=== PATIENT | female | born 1955 | race Two or more races ===

== ENCOUNTER 2020-02-24 20:51 | Inpatient (IN) | payer MEDICARE, MEDICAID ==
[~2020-02-24] VITALS: Ht 167.6 cm; Wt 112.2 kg
[2020-02-24 21:34] LABS: ABG A-A DIFF O2 515.8 mmHg (10-20.0); ABG BASE EXCESS -4.4 mmol/L (-2.0-3.0); ABG CARBOXYHEMOGLOBIN 0.8 % (0.0-1.5); ABG HCO3 20.4 mmol/L (22.0-26.0); ABG METHEMOGLOBIN 0.2 % (0.0-1.5); ABG OXYGEN CONTENT 17.4 mL/dL (15.0-23.0); ABG PCO2 59 mmHg (35-45); ABG PH 7.219 (7.35-7.450); ABG TOTAL HEMOGLOBIN 12.6 G/dL (12.0-18.0); PO2, ARTERIAL BG 137.3 mmHg (79.0-87.0); SOURCE, BLOOD GAS ARTERIAL; TEMPERATURE, FAHRENHEIT, BG 99.5 FAHREN (96.0-98.6)
[2020-02-24 21:35] LABS: O2 DEVICE,BLOOD GAS VENTILATOR (ROOM AIR); PEEP,BG 15 cm H2O; SITE, BLOOD GAS RT RADIAL; VT, ABG 500 ml
[2020-02-24] MEDS: PROPOFOL 1000 MG/ISO-OSM 100 ML IV PRN (21:56)
[2020-02-24] MEDS ORDERED: ONDANSETRON HCL 4 MG/2 ML VIAL IVP PRN ×2 (22:00→23:00)
[2020-02-24] MEDS ORDERED: ACETAMINOPHEN 325 MG TABLET PO PRN (22:00)
[2020-02-24] MEDS: NOREPINEPHRINE 4 MG/D5%-WATER 250 ML IV PRN (22:00)
[2020-02-24] MEDS ORDERED: 0.9% SODIUM CHLORIDE 10 ML SYRINGE IVP PRN ×2 (22:00→23:00)
[2020-02-24] MEDS: FentaNYL CITRATE PF 500 MCG in DEXTROSE 5%-WATER 90 ML IV PRN (22:15)
[2020-02-24] MEDS ORDERED: SODIUM CHLORIDE 0.9% 500 ML IV ONE (22:37)
[2020-02-24 22:52] LABS: ALANINE AMINOTRANSFERASE 25 U/L (12-78); ALBUMIN 2.3 g/dL (3.4-5.0); ALKALINE PHOSPHATASE 106 U/L (46-116); ANION GAP 8 mmol/L (8-16); ASPARTATE AMINOTRANSFERASE 70 U/L (15-37); BILIRUBIN,TOTAL 1.1 mg/dL (0.1-1.0); C-REACTIVE PROTEIN QUANT 7.36 mg/dL (0.00-0.30); CALCIUM, TOTAL 8.3 mg/dL (8.8-10.5); CARBON DIOXIDE 24 mmol/L (22-29); CHLORIDE 110 mmol/L (98-107); CREATININE 0.87 mg/dL (0.60-1.30); FERRITIN 202 ng/mL (8-252); GLOMERULAR FILTR. RATE CALC > 60 mL/min (>60); GLUCOSE,RANDOM 230 mg/dL (70-110); LACTATE DEHYDROGENASE 755 U/L (81-234); POTASSIUM 4.5 mmol/L (3.5-5.1); SODIUM SERUM 142 mmol/L (136-145); TOTAL PROTEIN, SERUM 6.9 g/dL (6.4-8.2); UREA NITROGEN, BLOOD 22 mg/dL (7-18)
[2020-02-24] MEDS ORDERED: CefTRIAXone 1 GM/DEXTROSE 50 ML IV SCH (23:00)
[2020-02-24] MEDS ORDERED: DEXMEDETOMIDINE HCL 200 MCG in SODIUM CHLORIDE 0.9% 48 ML IV PRN (23:00)
[2020-02-24 23:02] LABS: HEMATOCRIT 37.7 % (36-46); HEMOGLOBIN 11.7 g/dL (12.0-16.0); MEAN CORPUSCULAR VOLUME 90 fL (80-100); PLATELET COUNT (AUTO) 203 K/uL (150-450); RED BLOOD CELL COUNT(AUTO) 4.18 MIL/uL (4.00-5.20); RED CELL DISTRIBUTION WIDTH 17.6 % (11.5-14.5)
[2020-02-24 23:14] LABS: D-DIMER 9.02 mg/L FEU (0.00-0.50)
[2020-02-24 23:32] LABS: BAND NEUTROPHILS % (MANUAL) 3 % (0-5); LYMPHOCYTES % (MANUAL) 3 % (22-44); MONOCYTES % (MANUAL) 2 % (2-9); SEGMENTED NEUTROPHILS % 92 % (40-70)
[2020-02-24 23:50] LABS: ABG A-A DIFF O2 512.4 mmHg (10-20.0); ABG BASE EXCESS -6.4 mmol/L (-2.0-3.0); ABG CARBOXYHEMOGLOBIN 0.5 % (0.0-1.5); ABG HCO3 19.8 mmol/L (22.0-26.0); ABG METHEMOGLOBIN 0.2 % (0.0-1.5); ABG OXYGEN CONTENT 17.5 mL/dL (15.0-23.0); ABG OXYGEN SATURATION 98.6 % (95.0-98.0); ABG OXYHEMOGLOBIN 97.9 % (94.0-100.0); ABG PCO2 37 mmHg (35-45); ABG PH 7.336 (7.35-7.450); ABG TOTAL HEMOGLOBIN 12.5 G/dL (12.0-18.0); PO2, ARTERIAL BG 162.2 mmHg (79.0-87.0); SOURCE, BLOOD GAS ARTERIAL; TEMPERATURE, FAHRENHEIT, BG 99.5 FAHREN (96.0-98.6)
[2020-02-24 23:52] LABS: O2 DEVICE,BLOOD GAS VENTILATOR (ROOM AIR); PEEP,BG 15 cm H2O; SITE, BLOOD GAS ARTERIAL LINE; VT, ABG 500 ml
[2020-02-25] MEDS ORDERED: HEPARIN SODIUM,PORCINE 5,000 UNITS/ML VIAL SQ SCH
[2020-02-25] MEDS ORDERED: AZITHROMYCIN 500 MG/NS 250 ML IV SCH
[2020-02-25] MEDS ORDERED: DEXMEDETOMIDINE HCL 200 MCG in SODIUM CHLORIDE 0.9% 48 ML IV PRN (00:15)
[2020-02-25] MEDS: SODIUM CHLORIDE 0.9% 2,950 ML IV SCH ×2 (00:16→13:24)
[2020-02-25] MEDS ORDERED: DEXTROSE 50%-WATER 25 GM/50 ML SYRINGE IVP PRN (00:30)
[2020-02-25] MEDS ORDERED: HEPARIN SODIUM,PORCINE 5,000 UNITS/ML VIAL IVP PRN ×2 (00:30)
[2020-02-25 00:57] LABS: INR 1.2 (0.9-1.1)
[2020-02-25] MEDS: NOREPINEPHRINE 4 MG/D5%-WATER 250 ML IV PRN ×4 (02:02→16:01)
[2020-02-25] MEDS: HEPARIN SODIUM 25000 UNITS/D5W 250 ML IV PRN (02:49)
[2020-02-25] MEDS: PROPOFOL 1000 MG/ISO-OSM 100 ML IV PRN ×4 (04:23→21:24)
[2020-02-25] MEDS: INSULIN LISPRO 100 UNITS/ML SQ PRN ×4 (04:48→17:33)
[2020-02-25] MEDS: FentaNYL CITRATE PF 500 MCG in DEXTROSE 5%-WATER 90 ML IV PRN ×4 (05:05→21:25)
[2020-02-25 05:48] LABS: GLUCOSE,POINT OF CARE 243 MG/DL (70-110)
[2020-02-25 08:05] LABS: HEMATOCRIT 37.7 % (36-46); HEMOGLOBIN 12.2 g/dL (12.0-16.0); MEAN CORPUSCULAR HGB CONC 32.3 G/dL (31.0-37.0); MEAN CORPUSCULAR VOLUME 90 fL (80-100); PLATELET COUNT (AUTO) 181 K/uL (150-450); RED CELL DISTRIBUTION WIDTH 17.6 % (11.5-14.5)
[2020-02-25 08:26] LABS: D-DIMER 10.65 mg/L FEU (0.00-0.50)
[2020-02-25 08:28] LABS: LACTIC ACID 3.8 mmol/L (0.4-2.0)
[2020-02-25 08:34] LABS: ALANINE AMINOTRANSFERASE 25 U/L (12-78); ALBUMIN 2.2 g/dL (3.4-5.0); ALKALINE PHOSPHATASE 105 U/L (46-116); ANION GAP 9 mmol/L (8-16); ASPARTATE AMINOTRANSFERASE 67 U/L (15-37); BILIRUBIN,TOTAL 1.4 mg/dL (0.1-1.0); C-REACTIVE PROTEIN QUANT 10.45 mg/dL (0.00-0.30); CALCIUM, TOTAL 8.3 mg/dL (8.8-10.5); CARBON DIOXIDE 22 mmol/L (22-29); CHLORIDE 110 mmol/L (98-107); FERRITIN 203 ng/mL (8-252); GLOMERULAR FILTR. RATE CALC > 60 mL/min (>60); GLUCOSE,RANDOM 234 mg/dL (70-110); POTASSIUM 4.3 mmol/L (3.5-5.1); SODIUM SERUM 141 mmol/L (136-145); TOTAL PROTEIN, SERUM 6.8 g/dL (6.4-8.2); UREA NITROGEN, BLOOD 19 mg/dL (7-18)
[2020-02-25 09:07] LABS: BAND NEUTROPHILS % (MANUAL) 3 % (0-5); LYMPHOCYTES % (MANUAL) 8 % (22-44); SEGMENTED NEUTROPHILS % 89 % (40-70)
[2020-02-25 09:20] VITALS: BP 106/59
[2020-02-25 09:46] LABS: GLUCOSE,POINT OF CARE 208 MG/DL (70-110)
[2020-02-25] MEDS: DEXAMETHASONE SOD PHOS 10 MG/ML VIAL IVP SCH (09:46)
[2020-02-25] MEDS: FAMOTIDINE 10 MG/ML 2 ML VIAL IVP SCH ×2 (09:46→23:00)
[2020-02-25 12:00] VITALS: BP 106/87
[2020-02-25 13:10] LABS: GLUCOSE,POINT OF CARE 229 MG/DL (70-110)
[2020-02-25] MEDS ORDERED: CISATRACURIUM BESYLATE 2 MG/ML 10 ML VIAL IVP ONE ×2 (13:15→13:30)
[2020-02-25] MEDS: REMDESIVIR **INVESTIGATIONAL** 100 MG in SODIUM CHLORIDE 0.9% 230 ML IV SCH (13:57)
[2020-02-25] MEDS: CISATRACURIUM BESYLATE 50 MG in DEXTROSE 5%-WATER 245 ML IV PRN ×3 (13:58→21:00)
[2020-02-25 16:00] VITALS: BP 133/44
[2020-02-25 17:52] LABS: ABG A-A DIFF O2 263.7 mmHg (10-20.0); ABG BASE EXCESS -6.2 mmol/L (-2.0-3.0); ABG CARBOXYHEMOGLOBIN 0.3 % (0.0-1.5); ABG HCO3 19.3 mmol/L (22.0-26.0); ABG METHEMOGLOBIN 0.3 % (0.0-1.5); ABG OXYGEN CONTENT 17.2 mL/dL (15.0-23.0); ABG OXYGEN SATURATION 99.4 % (95.0-98.0); ABG OXYHEMOGLOBIN 98.8 % (94.0-100.0); ABG PCO2 54 mmHg (35-45); ABG TOTAL HEMOGLOBIN 11.8 G/dL (12.0-18.0); PO2, ARTERIAL BG 322.5 mmHg (79.0-87.0); SITE, BLOOD GAS RT RADIAL; SOURCE, BLOOD GAS ARTERIAL; TEMPERATURE, FAHRENHEIT, BG 98.8 FAHREN (96.0-98.6); VT, ABG 500 ml
[2020-02-25 17:53] LABS: PEEP,BG 10 cm H2O; SPONTANEOUS VT, BG 490 ml
[2020-02-25 19:07] LABS: GLUCOSE,POINT OF CARE 253 MG/DL (70-110)
[2020-02-25 20:00] VITALS: BP 115/50
[2020-02-25] MEDS: INSULIN GLARGINE,HUM.REC.ANLOG 100 UNITS/ML SQ SCH (21:02)
[2020-02-26] VITALS (10 sets, daily range): BP systolic 120–139; BP diastolic 48–61
[2020-02-26] MEDS: NOREPINEPHRINE 4 MG/D5%-WATER 250 ML IV PRN ×3 (00:06→18:24)
[2020-02-26] MEDS: FentaNYL CITRATE PF 500 MCG in DEXTROSE 5%-WATER 90 ML IV PRN ×3 (00:32→18:22)
[2020-02-26] MEDS ORDERED: SODIUM CHLORIDE 0.9% 250 ML IV ONE ×2 (02:55→17:03)
[2020-02-26 06:20] LABS: HEMATOCRIT 33.5 % (36-46); HEMOGLOBIN 10.9 g/dL (12.0-16.0); MEAN CORPUSCULAR HEMOGLOBIN 30.2 pg (26.0-34.0); MEAN CORPUSCULAR HGB CONC 32.6 G/dL (31.0-37.0); MEAN CORPUSCULAR VOLUME 93 fL (80-100); PLATELET COUNT (AUTO) 158 K/uL (150-450); RED BLOOD CELL COUNT(AUTO) 3.61 MIL/uL (4.00-5.20); RED CELL DISTRIBUTION WIDTH 17.2 % (11.5-14.5)
[2020-02-26] MEDS: HEPARIN SODIUM 25000 UNITS/D5W 250 ML IV PRN (06:34)
[2020-02-26] MEDS: PROPOFOL 1000 MG/ISO-OSM 100 ML IV PRN ×4 (06:35→21:13)
[2020-02-26] MEDS: CISATRACURIUM BESYLATE 50 MG in DEXTROSE 5%-WATER 245 ML IV PRN ×3 (06:36→22:45)
[2020-02-26] MEDS: INSULIN LISPRO 100 UNITS/ML SQ PRN ×4 (06:37→23:29)
[2020-02-26 06:42] LABS: ALANINE AMINOTRANSFERASE 35 U/L (12-78); ALBUMIN 1.9 g/dL (3.4-5.0); ALKALINE PHOSPHATASE 101 U/L (46-116); ANION GAP 6 mmol/L (8-16); ASPARTATE AMINOTRANSFERASE 105 U/L (15-37); BILIRUBIN,TOTAL 1.2 mg/dL (0.1-1.0); C-REACTIVE PROTEIN QUANT 15.24 mg/dL (0.00-0.30); CALCIUM, TOTAL 8.2 mg/dL (8.8-10.5); CARBON DIOXIDE 24 mmol/L (22-29); CHLORIDE 107 mmol/L (98-107); CREATININE 0.77 mg/dL (0.60-1.30); FERRITIN 196 ng/mL (8-252); GLOMERULAR FILTR. RATE CALC > 60 mL/min (>60); GLUCOSE,RANDOM 276 mg/dL (70-110); POTASSIUM 4.7 mmol/L (3.5-5.1); SODIUM SERUM 137 mmol/L (136-145); TOTAL PROTEIN, SERUM 6.4 g/dL (6.4-8.2); UREA NITROGEN, BLOOD 18 mg/dL (7-18)
[2020-02-26 06:59] LABS: GLUCOSE,POINT OF CARE 284 MG/DL (70-110)
[2020-02-26 06:59] LABS: GLUCOSE,POINT OF CARE 284 MG/DL (70-110)
[2020-02-26] MEDS: FAMOTIDINE 10 MG/ML 2 ML VIAL IVP SCH ×2 (08:48→21:09)
[2020-02-26] MEDS: DEXAMETHASONE SOD PHOS 10 MG/ML VIAL IVP SCH (08:49)
[2020-02-26] MEDS ORDERED: SODIUM CHLORIDE 0.9% 500 ML IV ONE (10:59)
[2020-02-26 12:06] LABS: BAND NEUTROPHILS % (MANUAL) 12 % (0-5); LYMPHOCYTES % (MANUAL) 2 % (22-44); MONOCYTES % (MANUAL) 2 % (2-9); MYELOCYTES % 1 % (0-0); SEGMENTED NEUTROPHILS % 83 % (40-70)
[2020-02-26 14:19] LABS: GLUCOSE,POINT OF CARE 257 MG/DL (70-110)
[2020-02-26] MEDS: REMDESIVIR **INVESTIGATIONAL** 100 MG in SODIUM CHLORIDE 0.9% 230 ML IV SCH (14:48)
[2020-02-26] MEDS: INSULIN GLARGINE,HUM.REC.ANLOG 100 UNITS/ML SQ SCH (21:11)
[2020-02-26 21:33] LABS: GLUCOMETER DEV NAME(LOC) 4E.2; GLUCOSE,POINT OF CARE 259 MG/DL (70-110)
[2020-02-27] VITALS (12 sets, daily range): BP systolic 117–138; BP diastolic 46–62
[2020-02-27] MEDS: PROPOFOL 1000 MG/ISO-OSM 100 ML IV PRN ×6 (02:52→21:16)
[2020-02-27] MEDS: HEPARIN SODIUM 25000 UNITS/D5W 250 ML IV PRN (02:53)
[2020-02-27] MEDS: FentaNYL CITRATE PF 500 MCG in DEXTROSE 5%-WATER 90 ML IV PRN ×4 (02:57→23:44)
[2020-02-27] MEDS: CISATRACURIUM BESYLATE 50 MG in DEXTROSE 5%-WATER 245 ML IV PRN ×3 (05:30→16:04)
[2020-02-27 05:44] LABS: HEMATOCRIT 30.2 % (36-46); HEMOGLOBIN 9.9 g/dL (12.0-16.0); MEAN CORPUSCULAR HEMOGLOBIN 29.7 pg (26.0-34.0); MEAN CORPUSCULAR HGB CONC 32.8 G/dL (31.0-37.0); MEAN CORPUSCULAR VOLUME 91 fL (80-100); PLATELET COUNT (AUTO) 112 K/uL (150-450); RED BLOOD CELL COUNT(AUTO) 3.34 MIL/uL (4.00-5.20); RED CELL DISTRIBUTION WIDTH 17.4 % (11.5-14.5)
[2020-02-27 05:55] LABS: D-DIMER 4.11 mg/L FEU (0.00-0.50)
[2020-02-27 06:15] LABS: ALANINE AMINOTRANSFERASE 35 U/L (12-78); ALBUMIN 1.8 g/dL (3.4-5.0); ALKALINE PHOSPHATASE 85 U/L (46-116); ANION GAP 2 mmol/L (8-16); ASPARTATE AMINOTRANSFERASE 67 U/L (15-37); BILIRUBIN,TOTAL 1.1 mg/dL (0.1-1.0); CALCIUM, TOTAL 8.1 mg/dL (8.8-10.5); CARBON DIOXIDE 28 mmol/L (22-29); CHLORIDE 109 mmol/L (98-107); CREATININE 0.55 mg/dL (0.60-1.30); GLOMERULAR FILTR. RATE CALC > 60 mL/min (>60); GLUCOSE,RANDOM 251 mg/dL (70-110); POTASSIUM 4.9 mmol/L (3.5-5.1); SODIUM SERUM 139 mmol/L (136-145); TOTAL PROTEIN, SERUM 6.1 g/dL (6.4-8.2); UREA NITROGEN, BLOOD 20 mg/dL (7-18)
[2020-02-27 06:23] LABS: C-REACTIVE PROTEIN QUANT 9.41 mg/dL (0.00-0.30); FERRITIN 143 ng/mL (8-252)
[2020-02-27 07:00] LABS: BAND NEUTROPHILS % (MANUAL) 11 % (0-5); LYMPHOCYTES % (MANUAL) 4 % (22-44); METAMYELOCYTES % 1 % (0-0); MONOCYTES % (MANUAL) 3 % (2-9); MYELOCYTES % 1 % (0-0); SEGMENTED NEUTROPHILS % 80 % (40-70)
[2020-02-27 07:17] LABS: GLUCOSE,POINT OF CARE 235 MG/DL (70-110)
[2020-02-27 08:52] LABS: ABG A-A DIFF O2 199.3 mmHg (10-20.0); ABG BASE EXCESS -1.3 mmol/L (-2.0-3.0); ABG HCO3 23.2 mmol/L (22.0-26.0); ABG METHEMOGLOBIN 0.3 % (0.0-1.5); ABG OXYGEN CONTENT 14.3 mL/dL (15.0-23.0); ABG OXYGEN SATURATION 97.3 % (95.0-98.0); ABG PCO2 48 mmHg (35-45); ABG PH 7.326 (7.35-7.450); ABG TOTAL HEMOGLOBIN 10.5 G/dL (12.0-18.0); PO2, ARTERIAL BG 102.9 mmHg (79.0-87.0); SOURCE, BLOOD GAS ARTERIAL; TEMPERATURE, FAHRENHEIT, BG 98.6 FAHREN (96.0-98.6)
[2020-02-27 08:53] LABS: O2 DEVICE,BLOOD GAS VENTILATOR (ROOM AIR); PEEP,BG 8 cm H2O; SITE, BLOOD GAS ARTERIAL LINE; VT, ABG 500 ml
[2020-02-27] MEDS: DEXAMETHASONE SOD PHOS 10 MG/ML VIAL IVP SCH (09:53)
[2020-02-27] MEDS: FAMOTIDINE 10 MG/ML 2 ML VIAL IVP SCH ×2 (09:53→21:15)
[2020-02-27] MEDS: INSULIN LISPRO 100 UNITS/ML SQ PRN ×3 (11:20→21:19)
[2020-02-27 11:31] LABS: GLUCOSE,POINT OF CARE 244 MG/DL (70-110)
[2020-02-27 12:59] LABS: PHOSPHORUS 2.3 mg/dL (2.5-4.9)
[2020-02-27] MEDS ORDERED: SODIUM CHLORIDE 0.9% 250 ML IV ONE (13:47)
[2020-02-27] MEDS: REMDESIVIR **INVESTIGATIONAL** 100 MG in SODIUM CHLORIDE 0.9% 230 ML IV SCH (14:52)
[2020-02-27] MEDS ORDERED: GLUCAGON,HUMAN RECOMBINANT 1 MG VIAL IM PRN (17:30)
[2020-02-27 17:37] LABS: GLUCOSE,POINT OF CARE 266 MG/DL (70-110)
[2020-02-27] MEDS ORDERED: DEXTROSE 50%-WATER 25 GM/50 ML SYG IVP PRN (17:45)
[2020-02-27 20:45] LABS: GLUCOSE,POINT OF CARE 259 MG/DL (70-110)
[2020-02-27] MEDS ORDERED: INSULIN GLARGINE,HUM.REC.ANLOG 100 UNITS/ML SQ SCH (21:00)
[2020-02-28] VITALS: BP 123/42
[2020-02-28] MEDS: INSULIN LISPRO 100 UNITS/ML SQ PRN ×2 (00:45→05:24)
[2020-02-28] MEDS: PROPOFOL 1000 MG/ISO-OSM 100 ML IV PRN ×6 (00:47→23:56)
[2020-02-28 04:00] VITALS: BP 135/51
[2020-02-28 05:00] LABS: GLUCOMETER DEV NAME(LOC) 4E.2; GLUCOSE,POINT OF CARE 241 MG/DL (70-110)
[2020-02-28] MEDS ORDERED: SODIUM CHLORIDE 0.9% 250 ML IV ONE (05:34)
[2020-02-28 05:35] LABS: GLUCOSE,POINT OF CARE 253 MG/DL (70-110)
[2020-02-28 05:35] LABS: GLUCOSE,POINT OF CARE 249 MG/DL (70-110)
[2020-02-28] MEDS: HEPARIN SODIUM 25000 UNITS/D5W 250 ML IV PRN (05:47)
[2020-02-28 06:18] LABS: HEMATOCRIT 29.8 % (36-46); HEMOGLOBIN 10.1 g/dL (12.0-16.0); MEAN CORPUSCULAR HEMOGLOBIN 31.4 pg (26.0-34.0); MEAN CORPUSCULAR HGB CONC 33.9 G/dL (31.0-37.0); MEAN CORPUSCULAR VOLUME 93 fL (80-100); PLATELET COUNT (AUTO) 110 K/uL (150-450); RED BLOOD CELL COUNT(AUTO) 3.22 MIL/uL (4.00-5.20); RED CELL DISTRIBUTION WIDTH 17.2 % (11.5-14.5)
[2020-02-28 06:23] LABS: ALANINE AMINOTRANSFERASE 38 U/L (12-78); ALKALINE PHOSPHATASE 84 U/L (46-116); ANION GAP 3 mmol/L (8-16); ASPARTATE AMINOTRANSFERASE 49 U/L (15-37); BILIRUBIN,TOTAL 1.4 mg/dL (0.1-1.0); C-REACTIVE PROTEIN QUANT 5.56 mg/dL (0.00-0.30); CALCIUM, TOTAL 8.5 mg/dL (8.8-10.5); CARBON DIOXIDE 26 mmol/L (22-29); CHLORIDE 107 mmol/L (98-107); CREATININE 0.81 mg/dL (0.60-1.30); GLOMERULAR FILTR. RATE CALC > 60 mL/min (>60); GLUCOSE,RANDOM 260 mg/dL (70-110); SODIUM SERUM 136 mmol/L (136-145); TOTAL PROTEIN, SERUM 6.2 g/dL (6.4-8.2); UREA NITROGEN, BLOOD 29 mg/dL (7-18)
[2020-02-28 06:24] LABS: D-DIMER 3.58 mg/L FEU (0.00-0.50)
[2020-02-28 07:12] LABS: FERRITIN 120 ng/mL (8-252)
[2020-02-28 08:00] VITALS: BP 126/49
[2020-02-28] MEDS: FAMOTIDINE 10 MG/ML 2 ML VIAL IVP SCH ×2 (08:14→20:04)
[2020-02-28] MEDS: DEXAMETHASONE SOD PHOS 10 MG/ML VIAL IVP SCH (08:15)
[2020-02-28 12:00] VITALS: BP 121/56
[2020-02-28] MEDS: INSULIN REGULAR, HUMAN 100 UNITS/ML SQ PRN ×3 (12:34→23:55)
[2020-02-28 13:55] LABS: BAND NEUTROPHILS % (MANUAL) 3 % (0-5); LYMPHOCYTES % (MANUAL) 3 % (22-44); METAMYELOCYTES % 1 % (0-0); MONOCYTES % (MANUAL) 8 % (2-9); MYELOCYTES % 1 % (0-0); SEGMENTED NEUTROPHILS % 84 % (40-70)
[2020-02-28] MEDS: REMDESIVIR **INVESTIGATIONAL** 100 MG in SODIUM CHLORIDE 0.9% 230 ML IV SCH (14:21)
[2020-02-28 16:00] VITALS: BP 122/62
[2020-02-28] MEDS: FentaNYL CITRATE PF 500 MCG in DEXTROSE 5%-WATER 90 ML IV PRN ×3 (17:04→23:56)
[2020-02-28 18:29] LABS: GLUCOSE,POINT OF CARE 289 MG/DL (70-110)
[2020-02-28 18:29] LABS: GLUCOSE,POINT OF CARE 279 MG/DL (70-110)
[2020-02-28 20:00] VITALS: BP 109/42
[2020-02-28] MEDS: INSULIN GLARGINE,HUM.REC.ANLOG 100 UNITS/ML SQ SCH (20:07)
[2020-02-28 23:40] LABS: GLUCOMETER DEV NAME(LOC) 4E.2; GLUCOSE,POINT OF CARE 305 MG/DL (70-110)
[2020-02-28] MEDS ORDERED: SODIUM CHLORIDE 0.9% 100 ML ONE (23:52)
[2020-02-29] VITALS (7 sets, daily range): BP systolic 117–134; BP diastolic 37–55
[2020-02-29 01:56] LABS: GLUCOSE,POINT OF CARE 328 MG/DL (70-110)
[2020-02-29] MEDS: FentaNYL CITRATE PF 500 MCG in DEXTROSE 5%-WATER 90 ML IV PRN ×3 (04:16→19:16)
[2020-02-29] MEDS: PROPOFOL 1000 MG/ISO-OSM 100 ML IV PRN ×4 (04:16→19:16)
[2020-02-29] MEDS: INSULIN REGULAR, HUMAN 100 UNITS/ML SQ PRN ×3 (06:53→17:05)
[2020-02-29 06:55] LABS: D-DIMER 2.46 mg/L FEU (0.00-0.50)
[2020-02-29 07:05] LABS: ALANINE AMINOTRANSFERASE 40 U/L (12-78); ALKALINE PHOSPHATASE 82 U/L (46-116); ANION GAP 3 mmol/L (8-16); ASPARTATE AMINOTRANSFERASE 42 U/L (15-37); BILIRUBIN,TOTAL 1.4 mg/dL (0.1-1.0); C-REACTIVE PROTEIN QUANT 3.61 mg/dL (0.00-0.30); CALCIUM, TOTAL 8.5 mg/dL (8.8-10.5); CARBON DIOXIDE 28 mmol/L (22-29); CHLORIDE 108 mmol/L (98-107); CREATININE 0.88 mg/dL (0.60-1.30); GLOMERULAR FILTR. RATE CALC > 60 mL/min (>60); GLUCOSE,RANDOM 332 mg/dL (70-110); POTASSIUM 5.2 mmol/L (3.5-5.1); SODIUM SERUM 139 mmol/L (136-145); TOTAL PROTEIN, SERUM 6.3 g/dL (6.4-8.2); UREA NITROGEN, BLOOD 41 mg/dL (7-18)
[2020-02-29 07:13] LABS: GLUCOMETER DEV NAME(LOC) 4E.2; GLUCOSE,POINT OF CARE 280 MG/DL (70-110)
[2020-02-29] MEDS: DEXAMETHASONE SOD PHOS 10 MG/ML VIAL IVP SCH (08:32)
[2020-02-29] MEDS: DOCUSATE SODIUM 100 MG/10 ML LIQUID UDCUP GT SCH (08:33)
[2020-02-29] MEDS: FAMOTIDINE 10 MG/ML 2 ML VIAL IVP SCH ×2 (08:33→21:03)
[2020-02-29 11:22] LABS: ABG A-A DIFF O2 75.1 mmHg (10-20.0); ABG BASE EXCESS -1.9 mmol/L (-2.0-3.0); ABG CARBOXYHEMOGLOBIN 0.8 % (0.0-1.5); ABG HCO3 22.9 mmol/L (22.0-26.0); ABG METHEMOGLOBIN 0.3 % (0.0-1.5); ABG OXYGEN CONTENT 15.7 mL/dL (15.0-23.0); ABG OXYGEN SATURATION 99.2 % (95.0-98.0); ABG OXYHEMOGLOBIN 98.1 % (94.0-100.0); ABG PCO2 45 mmHg (35-45); ABG PH 7.343 (7.35-7.450); ABG TOTAL HEMOGLOBIN 11.1 G/dL (12.0-18.0); PO2, ARTERIAL BG 194.7 mmHg (79.0-87.0); SOURCE, BLOOD GAS ARTERIAL; TEMPERATURE, FAHRENHEIT, BG 98.6 FAHREN (96.0-98.6)
[2020-02-29 11:23] LABS: O2 DEVICE,BLOOD GAS VENTILATOR (ROOM AIR); PEEP,BG 5 cm H2O; SITE, BLOOD GAS ARTERIAL LINE; SPONTANEOUS VT, BG 420 ml; VT, ABG 500 ml
[2020-02-29] MEDS: HEPARIN SODIUM 25000 UNITS/D5W 250 ML IV PRN (12:49)
[2020-02-29] MEDS: REMDESIVIR **INVESTIGATIONAL** 100 MG in SODIUM CHLORIDE 0.9% 230 ML IV SCH (15:05)
[2020-02-29] MEDS ORDERED: SODIUM CHLORIDE 0.9% 1,000 ML ONE (15:10)
[2020-02-29 17:42] LABS: GLUCOSE,POINT OF CARE 367 MG/DL (70-110)
[2020-02-29 19:37] LABS: GLUCOSE,POINT OF CARE 333 MG/DL (70-110)
[2020-02-29] MEDS: INSULIN GLARGINE,HUM.REC.ANLOG 100 UNITS/ML SQ SCH (21:04)
[2020-03-01] VITALS: BP 160/53
[2020-03-01] MEDS: INSULIN REGULAR, HUMAN 100 UNITS/ML SQ PRN ×5 (00:11→23:49)
[2020-03-01 04:00] VITALS: BP 142/43
[2020-03-01 05:24] LABS: GLUCOMETER DEV NAME(LOC) 4E.2; GLUCOSE,POINT OF CARE 325 MG/DL (70-110)
[2020-03-01 05:37] LABS: HEMATOCRIT 32.6 % (36-46); HEMOGLOBIN 10.6 g/dL (12.0-16.0); MEAN CORPUSCULAR HEMOGLOBIN 29.2 pg (26.0-34.0); MEAN CORPUSCULAR HGB CONC 32.4 G/dL (31.0-37.0); MEAN CORPUSCULAR VOLUME 90 fL (80-100); PLATELET COUNT (AUTO) 103 K/uL (150-450); RED BLOOD CELL COUNT(AUTO) 3.62 MIL/uL (4.00-5.20); RED CELL DISTRIBUTION WIDTH 17.8 % (11.5-14.5)
[2020-03-01 05:52] LABS: D-DIMER 2.41 mg/L FEU (0.00-0.50)
[2020-03-01 06:19] LABS: ALANINE AMINOTRANSFERASE 39 U/L (12-78); ALKALINE PHOSPHATASE 81 U/L (46-116); ANION GAP 1 mmol/L (8-16); ASPARTATE AMINOTRANSFERASE 41 U/L (15-37); BILIRUBIN,TOTAL 1.6 mg/dL (0.1-1.0); C-REACTIVE PROTEIN QUANT 3.11 mg/dL (0.00-0.30); CALCIUM, TOTAL 8.9 mg/dL (8.8-10.5); CARBON DIOXIDE 29 mmol/L (22-29); CHLORIDE 111 mmol/L (98-107); CREATININE 0.82 mg/dL (0.60-1.30); FERRITIN 100 ng/mL (8-252); GLOMERULAR FILTR. RATE CALC > 60 mL/min (>60); GLUCOSE,RANDOM 355 mg/dL (70-110); POTASSIUM 5.3 mmol/L (3.5-5.1); SODIUM SERUM 141 mmol/L (136-145); TOTAL PROTEIN, SERUM 6.4 g/dL (6.4-8.2); UREA NITROGEN, BLOOD 36 mg/dL (7-18)
[2020-03-01 08:00] VITALS: BP 159/49
[2020-03-01] MEDS: DEXAMETHASONE SOD PHOS 10 MG/ML VIAL IVP SCH (08:28)
[2020-03-01] MEDS: ACETAMINOPHEN 650 MG/20.3 ML SOLUTION UDCUP NG PRN ×2 (08:28→21:22)
[2020-03-01] MEDS: FAMOTIDINE 10 MG/ML 2 ML VIAL IVP SCH ×2 (08:28→20:29)
[2020-03-01] MEDS: DOCUSATE SODIUM 100 MG/10 ML LIQUID UDCUP GT SCH (08:28)
[2020-03-01 10:43] LABS: GLUCOSE,POINT OF CARE 295 MG/DL (70-110)
[2020-03-01 12:00] VITALS: BP 151/48
[2020-03-01 12:08] LABS: BAND NEUTROPHILS % (MANUAL) 5 % (0-5); LYMPHOCYTES % (MANUAL) 2 % (22-44); MONOCYTES % (MANUAL) 7 % (2-9); MYELOCYTES % 1 % (0-0); SEGMENTED NEUTROPHILS % 85 % (40-70)
[2020-03-01] MEDS: HYDROCODONE/ACETAMINOPHEN 10-325 MG TABLET PO PRN ×2 (12:39→18:16)
[2020-03-01] MEDS: INSULIN GLARGINE,HUM.REC.ANLOG 100 UNITS/ML SQ SCH ×2 (12:41→21:19)
[2020-03-01] MEDS: REMDESIVIR **INVESTIGATIONAL** 100 MG in SODIUM CHLORIDE 0.9% 230 ML IV SCH (15:01)
[2020-03-01 16:00] VITALS: BP 149/41
[2020-03-01] MEDS: HydrALAZINE HCL 25 MG TABLET PO SCH ×2 (16:41→23:47)
[2020-03-01 19:19] LABS: GLUCOSE,POINT OF CARE 378 MG/DL (70-110)
[2020-03-01 19:54] LABS: GLUCOMETER DEV NAME(LOC) 4E.2; GLUCOSE,POINT OF CARE 354 MG/DL (70-110)
[2020-03-01 20:00] VITALS: BP 138/39
[2020-03-01] MEDS: FentaNYL CITRATE PF 500 MCG in DEXTROSE 5%-WATER 90 ML IV PRN (23:48)
[2020-03-02] VITALS: BP 149/43
[2020-03-02 03:24] LABS: APPEARANCE,URINE CLOUDY (CLEAR); BILIRUBIN,URINE NEGATIVE (NEGATIVE); GLUCOSE, URINE (UA) 500 mg/dL (NEGATIVE); KETONES,URINE NEGATIVE (NEGATIVE); LEUKOCYTE ESTERASE ,URINE SMALL (NEGATIVE); NITRATE,URINE NEGATIVE (NEGATIVE); OCCULT BLOOD,URINE NEGATIVE (NEGATIVE); PROTEIN,URINE NEGATIVE (NEGATIVE)
[2020-03-02] MEDS: HEPARIN SODIUM 25000 UNITS/D5W 250 ML IV PRN (03:29)
[2020-03-02 03:36] LABS: BACTERIA,URINE Rare /HPF (None Seen); SQUAMOUS EPITHELIAL CELL,UR Rare /LPF (None Seen); YEAST,URINE Many /HPF (None Seen)
[2020-03-02 04:00] VITALS: BP 112/34
[2020-03-02 04:25] LABS: GLUCOMETER DEV NAME(LOC) 4E.2; GLUCOSE,POINT OF CARE 356 MG/DL (70-110)
[2020-03-02 04:25] LABS: GLUCOMETER DEV NAME(LOC) 4E.2; GLUCOSE,POINT OF CARE 339 MG/DL (70-110)
[2020-03-02] MEDS: INSULIN REGULAR, HUMAN 100 UNITS/ML SQ PRN ×3 (05:25→18:24)
[2020-03-02 06:03] LABS: HEMATOCRIT 33.8 % (36-46); HEMOGLOBIN 10.8 g/dL (12.0-16.0); MEAN CORPUSCULAR HEMOGLOBIN 29.2 pg (26.0-34.0); MEAN CORPUSCULAR VOLUME 91 fL (80-100); PLATELET COUNT (AUTO) 96 K/uL (150-450); RED BLOOD CELL COUNT(AUTO) 3.71 MIL/uL (4.00-5.20); RED CELL DISTRIBUTION WIDTH 18.3 % (11.5-14.5)
[2020-03-02 06:17] LABS: CALCIUM, TOTAL 8.9 mg/dL (8.8-10.5); CARBON DIOXIDE 30 mmol/L (22-29); CREATININE 0.82 mg/dL (0.60-1.30); GLOMERULAR FILTR. RATE CALC > 60 mL/min (>60); GLUCOSE,RANDOM 362 mg/dL (70-110); UREA NITROGEN, BLOOD 36 mg/dL (7-18)
[2020-03-02 06:20] LABS: D-DIMER 2.05 mg/L FEU (0.00-0.50)
[2020-03-02 06:54] LABS: GLUCOSE,POINT OF CARE 324 MG/DL (70-110)
[2020-03-02 07:56] LABS: BAND NEUTROPHILS % (MANUAL) 6 % (0-5); LYMPHOCYTES % (MANUAL) 1 % (22-44); MONOCYTES % (MANUAL) 7 % (2-9); SEGMENTED NEUTROPHILS % 86 % (40-70)
[2020-03-02 08:00] VITALS: BP 141/47
[2020-03-02 08:26] LABS: ALANINE AMINOTRANSFERASE 38 U/L (12-78); ALKALINE PHOSPHATASE 80 U/L (46-116); ASPARTATE AMINOTRANSFERASE 39 U/L (15-37); BILIRUBIN,TOTAL 1.9 mg/dL (0.1-1.0); C-REACTIVE PROTEIN QUANT 4.52 mg/dL (0.00-0.30); FERRITIN 94 ng/mL (8-252); TOTAL PROTEIN, SERUM 6.5 g/dL (6.4-8.2)
[2020-03-02] MEDS: DOCUSATE SODIUM 100 MG/10 ML LIQUID UDCUP GT SCH (08:33)
[2020-03-02] MEDS: DEXAMETHASONE SOD PHOS 10 MG/ML VIAL IVP SCH (08:41)
[2020-03-02] MEDS: HydrALAZINE HCL 25 MG TABLET PO SCH ×2 (08:41→16:03)
[2020-03-02] MEDS: FAMOTIDINE 10 MG/ML 2 ML VIAL IVP SCH ×2 (08:41→20:42)
[2020-03-02] MEDS: INSULIN GLARGINE,HUM.REC.ANLOG 100 UNITS/ML SQ SCH ×2 (08:42→20:45)
[2020-03-02 09:07] LABS: ANION GAP 5 mmol/L (8-16); CHLORIDE 113 mmol/L (98-107); POTASSIUM 5.5 mmol/L (3.5-5.1); SODIUM SERUM 148 mmol/L (136-145)
[2020-03-02] MEDS: HYDROCODONE/ACETAMINOPHEN 10-325 MG TABLET PO PRN (10:13)
[2020-03-02] MEDS: HydrALAZINE HCL 20 MG/ML VIAL IVP PRN (10:48)
[2020-03-02] MEDS: METOPROLOL TARTRATE 25 MG TABLET PO SCH ×2 (10:53→20:42)
[2020-03-02] MEDS: PROPOFOL 1000 MG/ISO-OSM 100 ML IV PRN (10:56)
[2020-03-02 12:00] VITALS: BP 129/43
[2020-03-02] MEDS ORDERED: VANCOMYCIN HCL 1.5 GM in DEXTROSE 5%-WATER 250 ML IV ONE (12:00)
[2020-03-02 12:48] LABS: GLUCOSE,POINT OF CARE 334 MG/DL (70-110)
[2020-03-02 12:48] LABS: GLUCOSE,POINT OF CARE 315 MG/DL (70-110)
[2020-03-02] MEDS: FLUCONAZOLE 200 MG/NACL ISOOSM 100 ML IV SCH (14:31)
[2020-03-02] MEDS: ACETAMINOPHEN 650 MG/20.3 ML SOLUTION UDCUP NG PRN (14:52)
[2020-03-02 15:41] LABS: PHOSPHORUS 2.9 mg/dL (2.5-4.9)
[2020-03-02 16:00] VITALS: BP 139/45
[2020-03-02] MEDS ORDERED: VANCOMYCIN HCL 1 GM/D5% WATER 200 ML IV SCH (16:00)
[2020-03-02] MEDS: REMDESIVIR **INVESTIGATIONAL** 100 MG in SODIUM CHLORIDE 0.9% 230 ML IV SCH (16:03)
[2020-03-02] MEDS: FentaNYL CITRATE PF 500 MCG in DEXTROSE 5%-WATER 90 ML IV PRN (16:57)
[2020-03-02] MEDS ORDERED: SODIUM POLYSTYRENE SULFONATE 15 GM/60 ML SUSPENSION BOTTLE PO ONE (17:45)
[2020-03-02 19:55] LABS: GLUCOMETER DEV NAME(LOC) 4E.2; GLUCOSE,POINT OF CARE 382 MG/DL (70-110)
[2020-03-02 20:00] VITALS: BP 143/45
[2020-03-02] MEDS: VANCOMYCIN HCL 1.25 GM in DEXTROSE 5%-WATER 250 ML IV SCH (20:42)
[2020-03-02] MEDS ORDERED: INSULIN GLARGINE,HUM.REC.ANLOG 100 UNITS/ML SQ SCH (21:00)
[2020-03-02 21:37] LABS: GLUCOMETER DEV NAME(LOC) 4E.2; GLUCOSE,POINT OF CARE 408 MG/DL (70-110)
[2020-03-03] VITALS: BP 132/43
[2020-03-03] MEDS ORDERED: VANCOMYCIN HCL 1 GM/D5% WATER 200 ML IV SCH
[2020-03-03] MEDS: HydrALAZINE HCL 25 MG TABLET PO SCH ×3 (01:14→17:13)
[2020-03-03] MEDS ORDERED: INSULIN REGULAR, HUMAN 100 UNITS/ML SQ ONE (01:15)
[2020-03-03] MEDS: ACETAMINOPHEN 650 MG/20.3 ML SOLUTION UDCUP NG PRN ×2 (01:34→05:38)
[2020-03-03] MEDS ORDERED: SODIUM CHLORIDE 0.9% 500 ML IV ONE (03:51)
[2020-03-03 04:00] VITALS: BP 119/40
[2020-03-03 05:12] LABS: HEMATOCRIT 34.4 % (36-46); HEMOGLOBIN 10.7 g/dL (12.0-16.0); MEAN CORPUSCULAR HGB CONC 31.2 G/dL (31.0-37.0); MEAN CORPUSCULAR VOLUME 93 fL (80-100); PLATELET COUNT (AUTO) 79 K/uL (150-450); RED BLOOD CELL COUNT(AUTO) 3.71 MIL/uL (4.00-5.20); RED CELL DISTRIBUTION WIDTH 18.9 % (11.5-14.5)
[2020-03-03 05:28] LABS: D-DIMER 1.6 mg/L FEU (0.00-0.50)
[2020-03-03 05:30] LABS: ALANINE AMINOTRANSFERASE 32 U/L (12-78); ALBUMIN 1.9 g/dL (3.4-5.0); ALKALINE PHOSPHATASE 72 U/L (46-116); ANION GAP 3 mmol/L (8-16); ASPARTATE AMINOTRANSFERASE 29 U/L (15-37); BILIRUBIN,TOTAL 1.9 mg/dL (0.1-1.0); C-REACTIVE PROTEIN QUANT 3.64 mg/dL (0.00-0.30); CALCIUM, TOTAL 8.8 mg/dL (8.8-10.5); CARBON DIOXIDE 31 mmol/L (22-29); CHLORIDE 114 mmol/L (98-107); CREATININE 0.86 mg/dL (0.60-1.30); GLOMERULAR FILTR. RATE CALC > 60 mL/min (>60); SODIUM SERUM 148 mmol/L (136-145); TOTAL PROTEIN, SERUM 6.3 g/dL (6.4-8.2); UREA NITROGEN, BLOOD 40 mg/dL (7-18)
[2020-03-03 05:37] LABS: GLUCOSE,RANDOM 413 mg/dL (70-110)
[2020-03-03] MEDS: INSULIN REGULAR, HUMAN 100 UNITS/ML SQ PRN ×3 (05:40→17:28)
[2020-03-03 05:55] LABS: BAND NEUTROPHILS % (MANUAL) 3 % (0-5); LYMPHOCYTES % (MANUAL) 4 % (22-44); MONOCYTES % (MANUAL) 8 % (2-9); SEGMENTED NEUTROPHILS % 85 % (40-70)
[2020-03-03 07:32] LABS: GLUCOMETER DEV NAME(LOC) 4E.2; GLUCOSE,POINT OF CARE 397 MG/DL (70-110)
[2020-03-03] MEDS: INSULIN GLARGINE,HUM.REC.ANLOG 100 UNITS/ML SQ SCH ×2 (07:53→20:32)
[2020-03-03] MEDS: DEXAMETHASONE SOD PHOS 10 MG/ML VIAL IVP SCH (07:55)
[2020-03-03] MEDS: VANCOMYCIN HCL 1.25 GM in DEXTROSE 5%-WATER 250 ML IV SCH ×2 (07:55→19:58)
[2020-03-03] MEDS: FAMOTIDINE 10 MG/ML 2 ML VIAL IVP SCH ×2 (07:56→20:31)
[2020-03-03] MEDS: METOPROLOL TARTRATE 25 MG TABLET PO SCH ×2 (07:57→20:31)
[2020-03-03] MEDS: DOCUSATE SODIUM 100 MG/10 ML LIQUID UDCUP GT SCH (07:57)
[2020-03-03 08:00] VITALS: BP 144/43
[2020-03-03] MEDS: HydrALAZINE HCL 20 MG/ML VIAL IVP PRN (11:03)
[2020-03-03] MEDS: HEPARIN SODIUM 25000 UNITS/D5W 250 ML IV PRN (11:19)
[2020-03-03 12:00] VITALS: BP 134/42
[2020-03-03] MEDS: FLUCONAZOLE 200 MG/NACL ISOOSM 100 ML IV SCH (13:28)
[2020-03-03] MEDS ORDERED: PIPERACILLIN SODIUM/TAZOBACTAM 4.5 GM in DEXTROSE 5%-WATER 100 ML IV ONE (14:00)
[2020-03-03] MEDS: REMDESIVIR **INVESTIGATIONAL** 100 MG in SODIUM CHLORIDE 0.9% 230 ML IV SCH (15:08)
[2020-03-03] MEDS: FentaNYL CITRATE PF 500 MCG in DEXTROSE 5%-WATER 90 ML IV PRN (17:14)
[2020-03-03 17:32] LABS: GLUCOSE,POINT OF CARE 403 MG/DL (70-110)
[2020-03-03 18:00] LABS: GLUCOSE,POINT OF CARE 300 MG/DL (70-110)
[2020-03-03] MEDS: PIPERACILLIN/TAZO 3.375 GM/D5W 50 ML IV SCH (19:58)
[2020-03-03 20:00] VITALS: BP 158/39
[2020-03-04] VITALS: BP 135/41
[2020-03-04] MEDS: HydrALAZINE HCL 25 MG TABLET PO SCH ×3 (00:41→15:41)
[2020-03-04 01:00] LABS: GLUCOMETER DEV NAME(LOC) 4E.2; GLUCOSE,POINT OF CARE 337 MG/DL (70-110)
[2020-03-04] MEDS ORDERED: SODIUM CHLORIDE 0.9% 100 ML ONE (01:28)
[2020-03-04] MEDS: INSULIN REGULAR, HUMAN 100 UNITS/ML SQ PRN ×4 (01:36→17:24)
[2020-03-04] MEDS: PIPERACILLIN/TAZO 3.375 GM/D5W 50 ML IV SCH ×4 (02:04→20:21)
[2020-03-04 04:00] VITALS: BP 140/43
[2020-03-04] MEDS: HydrALAZINE HCL 20 MG/ML VIAL IVP PRN ×3 (04:35→20:10)
[2020-03-04 06:10] LABS: BASOPHILS % (AUTO) 0.2 % (0.0-2.0); EOSINOPHILS % (AUTO) 0 % (1.0-6.0); HEMATOCRIT 35.1 % (36-46); LYMPHOCYTES # (AUTO) 0.5 K/uL (1.0-4.8); LYMPHOCYTES % (AUTO) 3.9 % (22.0-44.0); MEAN CORPUSCULAR HEMOGLOBIN 29.8 pg (26.0-34.0); MEAN CORPUSCULAR HGB CONC 31.3 G/dL (31.0-37.0); MEAN CORPUSCULAR VOLUME 95 fL (80-100); MONOCYTES # (AUTO) 1.5 K/uL (0.1-1.0); MONOCYTES % (AUTO) 11.5 % (2.0-9.0); NEUTROPHILS # (AUTO) 11.4 K/uL (1.8-7.7); NEUTROPHILS % (AUTO) 84.4 % (40.0-70.0); RED BLOOD CELL COUNT(AUTO) 3.69 MIL/uL (4.00-5.20); RED CELL DISTRIBUTION WIDTH 19.7 % (11.5-14.5)
[2020-03-04 06:20] LABS: D-DIMER 1.36 mg/L FEU (0.00-0.50)
[2020-03-04 06:40] LABS: GLUCOSE,POINT OF CARE 255 MG/DL (70-110)
[2020-03-04 06:40] LABS: GLUCOSE,POINT OF CARE 327 MG/DL (70-110)
[2020-03-04 06:40] LABS: GLUCOSE,POINT OF CARE 302 MG/DL (70-110)
[2020-03-04 07:17] LABS: ALANINE AMINOTRANSFERASE 36 U/L (12-78); ALBUMIN 1.8 g/dL (3.4-5.0); ALKALINE PHOSPHATASE 71 U/L (46-116); ANION GAP 1 mmol/L (8-16); ASPARTATE AMINOTRANSFERASE 39 U/L (15-37); BILIRUBIN,TOTAL 2.1 mg/dL (0.1-1.0); C-REACTIVE PROTEIN QUANT 2.38 mg/dL (0.00-0.30); CALCIUM, TOTAL 8.6 mg/dL (8.8-10.5); CARBON DIOXIDE 31 mmol/L (22-29); CHLORIDE 113 mmol/L (98-107); CREATININE 0.86 mg/dL (0.60-1.30); FERRITIN 92 ng/mL (8-252); GLOMERULAR FILTR. RATE CALC > 60 mL/min (>60); GLUCOSE,RANDOM 332 mg/dL (70-110); POTASSIUM 4.6 mmol/L (3.5-5.1); SODIUM SERUM 145 mmol/L (136-145); TOTAL PROTEIN, SERUM 5.9 g/dL (6.4-8.2); UREA NITROGEN, BLOOD 35 mg/dL (7-18); VANCOMYCIN,RANDOM 16.3 mcg/mL (25.0-50.0)
[2020-03-04 08:00] VITALS: BP 135/43
[2020-03-04] MEDS: INSULIN GLARGINE,HUM.REC.ANLOG 100 UNITS/ML SQ SCH ×2 (08:52→21:15)
[2020-03-04] MEDS: VANCOMYCIN HCL 1.25 GM in DEXTROSE 5%-WATER 250 ML IV SCH (08:52)
[2020-03-04] MEDS: METOPROLOL TARTRATE 25 MG TABLET PO SCH ×2 (08:55→20:22)
[2020-03-04] MEDS: DEXAMETHASONE SOD PHOS 10 MG/ML VIAL IVP SCH (08:55)
[2020-03-04] MEDS: FAMOTIDINE 10 MG/ML 2 ML VIAL IVP SCH ×2 (09:58→20:21)
[2020-03-04] MEDS: DOCUSATE SODIUM 100 MG/10 ML LIQUID UDCUP GT SCH (09:58)
[2020-03-04 11:41] LABS: PLATELET COUNT (AUTO) 66 K/uL (150-450)
[2020-03-04 12:00] VITALS: BP_SYST 139; BP_SYST 153; BP_DIAS 45; BP_DIAS 48
[2020-03-04] MEDS: FentaNYL CITRATE PF 500 MCG in DEXTROSE 5%-WATER 90 ML IV PRN (12:22)
[2020-03-04] MEDS: FLUCONAZOLE 200 MG/NACL ISOOSM 100 ML IV SCH (12:40)
[2020-03-04] MEDS ORDERED: SODIUM CHLORIDE 0.9% 500 ML IV ONE (15:39)
[2020-03-04] MEDS: VANCOMYCIN HCL 1 GM/D5% WATER 200 ML IV SCH (15:40)
[2020-03-04 16:00] VITALS: BP 180/54
[2020-03-04 19:02] LABS: ABG A-A DIFF O2 118.3 mmHg (10-20.0); ABG CARBOXYHEMOGLOBIN 1.6 % (0.0-1.5); ABG HCO3 27.6 mmol/L (22.0-26.0); ABG METHEMOGLOBIN 0.3 % (0.0-1.5); ABG OXYGEN CONTENT 17.4 mL/dL (15.0-23.0); ABG OXYGEN SATURATION 94.6 % (95.0-98.0); ABG OXYHEMOGLOBIN 92.8 % (94.0-100.0); ABG PCO2 44 mmHg (35-45); ABG PH 7.428 (7.35-7.450); ABG TOTAL HEMOGLOBIN 13.3 G/dL (12.0-18.0); PO2, ARTERIAL BG 79.7 mmHg (79.0-87.0); SOURCE, BLOOD GAS ARTERIAL; TEMPERATURE, FAHRENHEIT, BG 99.6 FAHREN (96.0-98.6)
[2020-03-04 19:03] LABS: SITE, BLOOD GAS ARTERIAL LINE
[2020-03-04 19:04] LABS: CPAP, BG 8 cm H2O; O2 DEVICE,BLOOD GAS VENTILATOR (ROOM AIR); PEEP,BG 0 cm H2O; VENT MODE, BG CPAP (ROOM AIR)
[2020-03-04 19:05] LABS: SPONTANEOUS VT, BG 550 ml
[2020-03-04 20:00] VITALS: BP 208/58
[2020-03-04 23:29] LABS: GLUCOSE,POINT OF CARE 245 MG/DL (70-110)
[2020-03-05] VITALS: BP 140/44
[2020-03-05] MEDS: VANCOMYCIN HCL 1 GM/D5% WATER 200 ML IV SCH ×3 (00:44→15:36)
[2020-03-05] MEDS: HydrALAZINE HCL 25 MG TABLET PO SCH ×3 (00:45→15:36)
[2020-03-05 00:58] LABS: GLUCOMETER DEV NAME(LOC) 4E.2; GLUCOSE,POINT OF CARE 319 MG/DL (70-110)
[2020-03-05 00:58] LABS: GLUCOMETER DEV NAME(LOC) 4E.2; GLUCOSE,POINT OF CARE 293 MG/DL (70-110)
[2020-03-05] MEDS: INSULIN REGULAR, HUMAN 100 UNITS/ML SQ PRN ×5 (01:05→23:45)
[2020-03-05] MEDS: PIPERACILLIN/TAZO 3.375 GM/D5W 50 ML IV SCH ×4 (02:00→22:06)
[2020-03-05 04:00] VITALS: BP 153/47
[2020-03-05 04:58] LABS: GLUCOSE,POINT OF CARE 334 MG/DL (70-110)
[2020-03-05 05:27] LABS: BASOPHILS % (AUTO) 0.2 % (0.0-2.0); EOSINOPHILS % (AUTO) 0 % (1.0-6.0); HEMATOCRIT 37.7 % (36-46); HEMOGLOBIN 11.8 g/dL (12.0-16.0); LYMPHOCYTES # (AUTO) 0.4 K/uL (1.0-4.8); LYMPHOCYTES % (AUTO) 2.5 % (22.0-44.0); MEAN CORPUSCULAR HEMOGLOBIN 29.3 pg (26.0-34.0); MEAN CORPUSCULAR HGB CONC 31.3 G/dL (31.0-37.0); MEAN CORPUSCULAR VOLUME 94 fL (80-100); MONOCYTES # (AUTO) 1.7 K/uL (0.1-1.0); NEUTROPHILS # (AUTO) 14.6 K/uL (1.8-7.7); PLATELET COUNT (AUTO) 65 K/uL (150-450); RED BLOOD CELL COUNT(AUTO) 4.04 MIL/uL (4.00-5.20); RED CELL DISTRIBUTION WIDTH 20.3 % (11.5-14.5)
[2020-03-05 05:42] LABS: ALANINE AMINOTRANSFERASE 40 U/L (12-78); ALBUMIN 1.8 g/dL (3.4-5.0); ALKALINE PHOSPHATASE 80 U/L (46-116); ANION GAP 3 mmol/L (8-16); ASPARTATE AMINOTRANSFERASE 41 U/L (15-37); BILIRUBIN,TOTAL 2.4 mg/dL (0.1-1.0); C-REACTIVE PROTEIN QUANT 1.82 mg/dL (0.00-0.30); CALCIUM, TOTAL 8.4 mg/dL (8.8-10.5); CARBON DIOXIDE 32 mmol/L (22-29); CHLORIDE 112 mmol/L (98-107); FERRITIN 100 ng/mL (8-252); GLOMERULAR FILTR. RATE CALC > 60 mL/min (>60); GLUCOSE,RANDOM 349 mg/dL (70-110); SODIUM SERUM 147 mmol/L (136-145); UREA NITROGEN, BLOOD 32 mg/dL (7-18)
[2020-03-05 05:48] LABS: NEUTROPHILS % (AUTO) 87.3 % (40.0-70.0)
[2020-03-05] MEDS: FentaNYL CITRATE PF 500 MCG in DEXTROSE 5%-WATER 90 ML IV PRN (06:38)
[2020-03-05] MEDS: FAMOTIDINE 10 MG/ML 2 ML VIAL IVP SCH ×2 (07:28→20:51)
[2020-03-05] MEDS: DOCUSATE SODIUM 100 MG/10 ML LIQUID UDCUP GT SCH (07:28)
[2020-03-05] MEDS: METOPROLOL TARTRATE 25 MG TABLET PO SCH ×2 (07:28→20:53)
[2020-03-05] MEDS: DEXAMETHASONE SOD PHOS 10 MG/ML VIAL IVP SCH (07:28)
[2020-03-05] MEDS: INSULIN GLARGINE,HUM.REC.ANLOG 100 UNITS/ML SQ SCH ×2 (07:47→20:47)
[2020-03-05 07:54] LABS: GLUCOMETER DEV NAME(LOC) 4E.2; GLUCOSE,POINT OF CARE 266 MG/DL (70-110)
[2020-03-05 08:00] VITALS: BP 122/41
[2020-03-05] MEDS: HYDROCODONE/ACETAMINOPHEN 10-325 MG TABLET PO PRN (10:58)
[2020-03-05 12:00] VITALS: BP 120/59
[2020-03-05 12:19] LABS: SOURCE, BLOOD GAS ARTERIAL; TEMPERATURE, FAHRENHEIT, BG 98.6 FAHREN (96.0-98.6)
[2020-03-05 12:30] LABS: ABG A-A DIFF O2 85.4 mmHg (10-20.0); ABG BASE EXCESS 5.8 mmol/L (-2.0-3.0); ABG CARBOXYHEMOGLOBIN 0.9 % (0.0-1.5); ABG HCO3 29.3 mmol/L (22.0-26.0); ABG OXYGEN CONTENT 16.4 mL/dL (15.0-23.0); ABG OXYGEN SATURATION 98.1 % (95.0-98.0); ABG OXYHEMOGLOBIN 97.2 % (94.0-100.0); ABG PCO2 41 mmHg (35-45); ABG PH 7.475 (7.35-7.450); ABG TOTAL HEMOGLOBIN 11.9 G/dL (12.0-18.0); PO2, ARTERIAL BG 116.7 mmHg (79.0-87.0)
[2020-03-05 12:31] LABS: CPAP, BG 5 cm H2O; O2 DEVICE,BLOOD GAS VENTILATOR (ROOM AIR); PEEP,BG 5 cm H2O; PRESSURE SUPPORT, BG 8 cm H2O; SITE, BLOOD GAS ARTERIAL LINE; SPONTANEOUS VT, BG 658 ml; VENT MODE, BG SPONTANEOUS (ROOM AIR)
[2020-03-05] MEDS: FLUCONAZOLE 200 MG/NACL ISOOSM 100 ML IV SCH (12:43)
[2020-03-05] MEDS ORDERED: AMPICILLIN SODIUM 2 GM/NS 100 ML IV SCH (13:00)
[2020-03-05 13:03] LABS: GLUCOSE,POINT OF CARE 285 MG/DL (70-110)
[2020-03-05 13:03] LABS: GLUCOSE,POINT OF CARE 339 MG/DL (70-110)
[2020-03-05 16:00] VITALS: BP 147/43
[2020-03-05] MEDS: MAGNESIUM HYDROXIDE SUSPENSION 30 ML UDCUP PO PRN (16:30)
[2020-03-05 17:30] LABS: GLUCOMETER DEV NAME(LOC) 4E.2; GLUCOSE,POINT OF CARE 318 MG/DL (70-110)
[2020-03-05 20:00] VITALS: BP 144/39
[2020-03-06] VITALS: BP 131/41
[2020-03-06] MEDS ORDERED: SODIUM CHLORIDE 0.9% 500 ML IV ONE (00:35)
[2020-03-06] MEDS ORDERED: SODIUM CHLORIDE 0.9% 250 ML IV ONE (00:35)
[2020-03-06] MEDS: HydrALAZINE HCL 25 MG TABLET PO SCH ×3 (00:43→15:18)
[2020-03-06] MEDS: VANCOMYCIN HCL 1 GM/D5% WATER 200 ML IV SCH ×2 (00:43→08:12)
[2020-03-06 03:17] LABS: GLUCOMETER DEV NAME(LOC) 4E.2; GLUCOSE,POINT OF CARE 330 MG/DL (70-110)
[2020-03-06 03:17] LABS: GLUCOMETER DEV NAME(LOC) 4E.2; GLUCOSE,POINT OF CARE 284 MG/DL (70-110)
[2020-03-06 04:00] VITALS: BP 118/40
[2020-03-06] MEDS: PIPERACILLIN/TAZO 3.375 GM/D5W 50 ML IV SCH ×4 (05:07→22:37)
[2020-03-06 05:08] LABS: BASOPHILS % (AUTO) 0.2 % (0.0-2.0); EOSINOPHILS % (AUTO) 0 % (1.0-6.0); HEMATOCRIT 34.3 % (36-46); HEMOGLOBIN 11.3 g/dL (12.0-16.0); LYMPHOCYTES # (AUTO) 0.3 K/uL (1.0-4.8); LYMPHOCYTES % (AUTO) 2.6 % (22.0-44.0); MEAN CORPUSCULAR HEMOGLOBIN 30.6 pg (26.0-34.0); MEAN CORPUSCULAR VOLUME 93 fL (80-100); MONOCYTES % (AUTO) 9.3 % (2.0-9.0); NEUTROPHILS # (AUTO) 9.5 K/uL (1.8-7.7); RED CELL DISTRIBUTION WIDTH 19.7 % (11.5-14.5)
[2020-03-06] MEDS: INSULIN REGULAR, HUMAN 100 UNITS/ML SQ PRN ×4 (05:37→20:36)
[2020-03-06 05:39] LABS: ALANINE AMINOTRANSFERASE 42 U/L (12-78); ALBUMIN 1.6 g/dL (3.4-5.0); ALKALINE PHOSPHATASE 73 U/L (46-116); ANION GAP 0 mmol/L (8-16); ASPARTATE AMINOTRANSFERASE 35 U/L (15-37); BILIRUBIN,TOTAL 2.3 mg/dL (0.1-1.0); C-REACTIVE PROTEIN QUANT 1.31 mg/dL (0.00-0.30); CALCIUM, TOTAL 8.3 mg/dL (8.8-10.5); CARBON DIOXIDE 33 mmol/L (22-29); CHLORIDE 113 mmol/L (98-107); CREATININE 0.76 mg/dL (0.60-1.30); GLOMERULAR FILTR. RATE CALC > 60 mL/min (>60); GLUCOSE,RANDOM 297 mg/dL (70-110); POTASSIUM 4.9 mmol/L (3.5-5.1); SODIUM SERUM 146 mmol/L (136-145); TOTAL PROTEIN, SERUM 5.5 g/dL (6.4-8.2); UREA NITROGEN, BLOOD 34 mg/dL (7-18); VANCOMYCIN,RANDOM 25.7 mcg/mL (25.0-50.0)
[2020-03-06 05:56] LABS: NEUTROPHILS % (AUTO) 87.9 % (40.0-70.0)
[2020-03-06 08:00] VITALS: BP 148/47
[2020-03-06] MEDS: DEXAMETHASONE SOD PHOS 10 MG/ML VIAL IVP SCH (08:12)
[2020-03-06] MEDS: DOCUSATE SODIUM 100 MG/10 ML LIQUID UDCUP GT SCH (08:12)
[2020-03-06] MEDS: METOPROLOL TARTRATE 25 MG TABLET PO SCH ×2 (08:12→19:57)
[2020-03-06] MEDS: FAMOTIDINE 10 MG/ML 2 ML VIAL IVP SCH ×2 (08:12→20:33)
[2020-03-06] MEDS: INSULIN GLARGINE,HUM.REC.ANLOG 100 UNITS/ML SQ SCH ×2 (08:22→20:35)
[2020-03-06 09:01] LABS: PLATELET COUNT (AUTO) 51 K/uL (150-450)
[2020-03-06 10:52] LABS: ABG A-A DIFF O2 101.5 mmHg (10-20.0); ABG BASE EXCESS 6.8 mmol/L (-2.0-3.0); ABG CARBOXYHEMOGLOBIN 1.3 % (0.0-1.5); ABG HCO3 30.3 mmol/L (22.0-26.0); ABG METHEMOGLOBIN 0.3 % (0.0-1.5); ABG OXYGEN CONTENT 17.5 mL/dL (15.0-23.0); ABG OXYHEMOGLOBIN 96.4 % (94.0-100.0); ABG PCO2 38 mmHg (35-45); ABG PH 7.511 (7.35-7.450); ABG TOTAL HEMOGLOBIN 12.8 G/dL (12.0-18.0); PO2, ARTERIAL BG 104.1 mmHg (79.0-87.0); SOURCE, BLOOD GAS ARTERIAL; TEMPERATURE, FAHRENHEIT, BG 97.9 FAHREN (96.0-98.6)
[2020-03-06 12:00] VITALS: BP 125/41
[2020-03-06] MEDS: FLUCONAZOLE 200 MG/NACL ISOOSM 100 ML IV SCH (12:35)
[2020-03-06 13:33] LABS: SITE, BLOOD GAS ARTERIAL LINE
[2020-03-06 13:34] LABS: CPAP, BG 5 cm H2O; O2 DEVICE,BLOOD GAS VENTILATOR (ROOM AIR); PRESSURE SUPPORT, BG 8 cm H2O; VENT MODE, BG CPAP (ROOM AIR)
[2020-03-06 13:35] LABS: GLUCOMETER DEV NAME(LOC) 4E.2; GLUCOSE,POINT OF CARE 266 MG/DL (70-110)
[2020-03-06 16:00] VITALS: BP 144/44
[2020-03-06] MEDS ORDERED: FentaNYL CITRATE-PF 100 MCG/2 ML VIAL IVP PRN (16:00)
[2020-03-06 18:13] LABS: GLUCOSE,POINT OF CARE 249 MG/DL (70-110)
[2020-03-06 20:00] VITALS: BP 142/49
[2020-03-06 20:21] LABS: APPEARANCE,URINE CLEAR (CLEAR); BILIRUBIN,URINE NEGATIVE (NEGATIVE); GLUCOSE, URINE (UA) NEGATIVE (NEGATIVE); KETONES,URINE NEGATIVE (NEGATIVE); LEUKOCYTE ESTERASE ,URINE NEGATIVE (NEGATIVE); NITRATE,URINE NEGATIVE (NEGATIVE); OCCULT BLOOD,URINE NEGATIVE (NEGATIVE); PROTEIN,URINE NEGATIVE (NEGATIVE)
[2020-03-07] VITALS (7 sets, daily range): BP systolic 103–146; BP diastolic 40–55
[2020-03-07] MEDS: INSULIN REGULAR, HUMAN 100 UNITS/ML SQ PRN ×5 (01:53→23:27)
[2020-03-07 02:53] LABS: GLUCOMETER DEV NAME(LOC) 4E.2; GLUCOSE,POINT OF CARE 244 MG/DL (70-110)
[2020-03-07 02:53] LABS: GLUCOMETER DEV NAME(LOC) 4E.2; GLUCOSE,POINT OF CARE 245 MG/DL (70-110)
[2020-03-07] MEDS: PIPERACILLIN/TAZO 3.375 GM/D5W 50 ML IV SCH ×4 (05:14→23:28)
[2020-03-07 05:22] LABS: BASOPHILS % (AUTO) 0.1 % (0.0-2.0); EOSINOPHILS % (AUTO) 0 % (1.0-6.0); HEMATOCRIT 35.2 % (36-46); HEMOGLOBIN 11.4 g/dL (12.0-16.0); LYMPHOCYTES # (AUTO) 0.3 K/uL (1.0-4.8); LYMPHOCYTES % (AUTO) 2.4 % (22.0-44.0); MEAN CORPUSCULAR HEMOGLOBIN 30.2 pg (26.0-34.0); MEAN CORPUSCULAR HGB CONC 32.5 G/dL (31.0-37.0); MEAN CORPUSCULAR VOLUME 93 fL (80-100); MONOCYTES % (AUTO) 7.7 % (2.0-9.0); NEUTROPHILS # (AUTO) 12.2 K/uL (1.8-7.7); PLATELET COUNT (AUTO) 46 K/uL (150-450); RED BLOOD CELL COUNT(AUTO) 3.78 MIL/uL (4.00-5.20); RED CELL DISTRIBUTION WIDTH 20.3 % (11.5-14.5)
[2020-03-07 05:27] LABS: GLUCOSE,POINT OF CARE 192 MG/DL (70-110)
[2020-03-07 05:27] LABS: NEUTROPHILS % (AUTO) 89.8 % (40.0-70.0)
[2020-03-07 06:22] LABS: ALANINE AMINOTRANSFERASE 48 U/L (12-78); ALBUMIN 1.7 g/dL (3.4-5.0); ALKALINE PHOSPHATASE 76 U/L (46-116); ANION GAP 5 mmol/L (8-16); ASPARTATE AMINOTRANSFERASE 43 U/L (15-37); BILIRUBIN,TOTAL 2.5 mg/dL (0.1-1.0); CALCIUM, TOTAL 8.6 mg/dL (8.8-10.5); CARBON DIOXIDE 31 mmol/L (22-29); CHLORIDE 116 mmol/L (98-107); CREATININE 0.71 mg/dL (0.60-1.30); FERRITIN 77 ng/mL (8-252); GLOMERULAR FILTR. RATE CALC > 60 mL/min (>60); GLUCOSE,RANDOM 210 mg/dL (70-110); SODIUM SERUM 152 mmol/L (136-145); TOTAL PROTEIN, SERUM 5.6 g/dL (6.4-8.2); UREA NITROGEN, BLOOD 33 mg/dL (7-18)
[2020-03-07 07:00] LABS: GLUCOSE,POINT OF CARE 202 MG/DL (70-110)
[2020-03-07] MEDS: HydrALAZINE HCL 25 MG TABLET PO SCH ×3 (07:10→17:29)
[2020-03-07] MEDS: DOCUSATE SODIUM 100 MG/10 ML LIQUID UDCUP GT SCH (07:11)
[2020-03-07] MEDS: METOPROLOL TARTRATE 25 MG TABLET PO SCH ×2 (07:11→21:37)
[2020-03-07] MEDS: DEXAMETHASONE SOD PHOS 10 MG/ML VIAL IVP SCH (07:43)
[2020-03-07] MEDS: FAMOTIDINE 10 MG/ML 2 ML VIAL IVP SCH ×2 (07:43→21:36)
[2020-03-07] MEDS: INSULIN GLARGINE,HUM.REC.ANLOG 100 UNITS/ML SQ SCH ×2 (08:44→23:26)
[2020-03-07] MEDS: HYDROCODONE/ACETAMINOPHEN 10-325 MG TABLET PO PRN (09:05)
[2020-03-07] MEDS ORDERED: RINGERS SOLUTION,LACTATED 1,000 ML IV ONE (12:00)
[2020-03-07] MEDS ORDERED: BISACODYL 10 MG RECTAL RECTAL SUPPOSITORY PR PRN (12:00)
[2020-03-07 14:34] LABS: GLUCOMETER DEV NAME(LOC) 4E.2; GLUCOSE,POINT OF CARE 224 MG/DL (70-110)
[2020-03-07 14:34] LABS: GLUCOMETER DEV NAME(LOC) 4E.2; GLUCOSE,POINT OF CARE 175 MG/DL (70-110)
[2020-03-07] MEDS ORDERED: SODIUM CHLORIDE 0.45% 1,000 ML IV ONE (16:30)
[2020-03-07 18:18] LABS: GLUCOMETER DEV NAME(LOC) 5N.3; GLUCOSE,POINT OF CARE 278 MG/DL (70-110)
[2020-03-07 20:32] LABS: ANION GAP 7 mmol/L (8-16); CALCIUM, TOTAL 8.8 mg/dL (8.8-10.5); CARBON DIOXIDE 27 mmol/L (22-29); CHLORIDE 113 mmol/L (98-107); CREATININE 0.76 mg/dL (0.60-1.30); GLOMERULAR FILTR. RATE CALC > 60 mL/min (>60); GLUCOSE,RANDOM 316 mg/dL (70-110); SODIUM SERUM 147 mmol/L (136-145); UREA NITROGEN, BLOOD 33 mg/dL (7-18)
[2020-03-08] VITALS (7 sets, daily range): BP systolic 99–128; BP diastolic 50–65
[2020-03-08 01:14] LABS: GLUCOMETER DEV NAME(LOC) 5N.3; GLUCOSE,POINT OF CARE 247 MG/DL (70-110)
[2020-03-08 02:09] LABS: ANION GAP 3 mmol/L (8-16); CALCIUM, TOTAL 8.6 mg/dL (8.8-10.5); CARBON DIOXIDE 29 mmol/L (22-29); CHLORIDE 113 mmol/L (98-107); CREATININE 0.71 mg/dL (0.60-1.30); GLOMERULAR FILTR. RATE CALC > 60 mL/min (>60); GLUCOSE,RANDOM 245 mg/dL (70-110); POTASSIUM 5.1 mmol/L (3.5-5.1); SODIUM SERUM 145 mmol/L (136-145); UREA NITROGEN, BLOOD 31 mg/dL (7-18)
[2020-03-08] MEDS: PIPERACILLIN/TAZO 3.375 GM/D5W 50 ML IV SCH ×4 (05:48→23:39)
[2020-03-08 06:32] LABS: GLUCOMETER DEV NAME(LOC) 5N.3; GLUCOSE,POINT OF CARE 198 MG/DL (70-110)
[2020-03-08] MEDS: DEXAMETHASONE SOD PHOS 10 MG/ML VIAL IVP SCH (08:21)
[2020-03-08] MEDS: HydrALAZINE HCL 25 MG TABLET PO SCH ×3 (08:21→15:17)
[2020-03-08] MEDS: DOCUSATE SODIUM 100 MG/10 ML LIQUID UDCUP GT SCH (08:21)
[2020-03-08] MEDS: FAMOTIDINE 10 MG/ML 2 ML VIAL IVP SCH ×2 (08:21→21:30)
[2020-03-08] MEDS: METOPROLOL TARTRATE 25 MG TABLET PO SCH ×2 (08:22→21:30)
[2020-03-08] MEDS: HYDROCODONE/ACETAMINOPHEN 10-325 MG TABLET PO PRN (08:23)
[2020-03-08] MEDS: INSULIN GLARGINE,HUM.REC.ANLOG 100 UNITS/ML SQ SCH ×2 (08:29→21:38)
[2020-03-08 11:49] LABS: EOSINOPHILS % (AUTO) 0.1 % (1.0-6.0); HEMATOCRIT 37.6 % (36-46); HEMOGLOBIN 11.6 g/dL (12.0-16.0); LYMPHOCYTES # (AUTO) 0.3 K/uL (1.0-4.8); LYMPHOCYTES % (AUTO) 1.8 % (22.0-44.0); MEAN CORPUSCULAR HEMOGLOBIN 29.3 pg (26.0-34.0); MEAN CORPUSCULAR HGB CONC 30.8 G/dL (31.0-37.0); MEAN CORPUSCULAR VOLUME 95 fL (80-100); MONOCYTES # (AUTO) 1.3 K/uL (0.1-1.0); MONOCYTES % (AUTO) 8.1 % (2.0-9.0); NEUTROPHILS # (AUTO) 14.2 K/uL (1.8-7.7); RED BLOOD CELL COUNT(AUTO) 3.95 MIL/uL (4.00-5.20)
[2020-03-08 12:00] LABS: ALANINE AMINOTRANSFERASE 68 U/L (12-78); ALBUMIN 1.7 g/dL (3.4-5.0); ALKALINE PHOSPHATASE 91 U/L (46-116); ANION GAP 5 mmol/L (8-16); ASPARTATE AMINOTRANSFERASE 77 U/L (15-37); BILIRUBIN,TOTAL 2.5 mg/dL (0.1-1.0); C-REACTIVE PROTEIN QUANT 1.16 mg/dL (0.00-0.30); CALCIUM, TOTAL 8.5 mg/dL (8.8-10.5); CARBON DIOXIDE 29 mmol/L (22-29); CHLORIDE 112 mmol/L (98-107); CHOL/HDL RATIO 4.8 (3.9-5.7); CHOLESTEROL 130 mg/dL (131-200); CREATININE 0.65 mg/dL (0.60-1.30); FREE T4 (FREE THYROXINE) 0.72 ng/dL (0.76-1.46); GLOMERULAR FILTR. RATE CALC > 60 mL/min (>60); GLUCOSE,RANDOM 185 mg/dL (70-110); HDL CHOLESTEROL 27 mg/dL (40-60); LDL CHOL (CALC.) 86 mg/dL (0-130); POTASSIUM 5.1 mmol/L (3.5-5.1); SODIUM SERUM 146 mmol/L (136-145); TOTAL PROTEIN, SERUM 5.6 g/dL (6.4-8.2); TRIGLYCERIDES 86 mg/dL (15-150); UREA NITROGEN, BLOOD 28 mg/dL (7-18)
[2020-03-08] MEDS: INSULIN REGULAR, HUMAN 100 UNITS/ML SQ PRN ×2 (12:11→17:26)
[2020-03-08 13:03] LABS: PLATELET COUNT (AUTO) 42 K/uL (150-450)
[2020-03-08 14:36] LABS: ANION GAP 6 mmol/L (8-16); CALCIUM, TOTAL 8.3 mg/dL (8.8-10.5); CARBON DIOXIDE 28 mmol/L (22-29); CHLORIDE 112 mmol/L (98-107); CREATININE 0.65 mg/dL (0.60-1.30); GLOMERULAR FILTR. RATE CALC > 60 mL/min (>60); GLUCOSE,RANDOM 226 mg/dL (70-110); POTASSIUM 5.1 mmol/L (3.5-5.1); SODIUM SERUM 146 mmol/L (136-145); UREA NITROGEN, BLOOD 28 mg/dL (7-18)
[2020-03-08 15:56] LABS: GLUCOMETER DEV NAME(LOC) 5S.1; GLUCOSE,POINT OF CARE 146 MG/DL (70-110)
[2020-03-08 19:44] LABS: GLUCOMETER DEV NAME(LOC) 5N.3; GLUCOSE,POINT OF CARE 166 MG/DL (70-110)
[2020-03-08] MEDS: MULTIVITAMINS WITH MINERALS, THERAPEUTIC TABLET PO SCH (21:30)
[2020-03-08] MEDS: MAGNESIUM HYDROXIDE SUSPENSION 30 ML UDCUP PO PRN (21:31)
[2020-03-08 22:00] LABS: ANION GAP 6 mmol/L (8-16); CALCIUM, TOTAL 8.2 mg/dL (8.8-10.5); CARBON DIOXIDE 29 mmol/L (22-29); CHLORIDE 108 mmol/L (98-107); GLOMERULAR FILTR. RATE CALC > 60 mL/min (>60); GLUCOSE,RANDOM 231 mg/dL (70-110); POTASSIUM 5.3 mmol/L (3.5-5.1); SODIUM SERUM 143 mmol/L (136-145); UREA NITROGEN, BLOOD 25 mg/dL (7-18)
[2020-03-09] MEDS: HydrALAZINE HCL 25 MG TABLET PO SCH ×4 (00:09→22:16)
[2020-03-09 00:36] LABS: GLUCOMETER DEV NAME(LOC) 5S.1; GLUCOSE,POINT OF CARE 203 MG/DL (70-110)
[2020-03-09] MEDS: PIPERACILLIN/TAZO 3.375 GM/D5W 50 ML IV SCH ×4 (06:06→22:22)
[2020-03-09 06:16] VITALS: BP 94/46
[2020-03-09 07:09] LABS: BASOPHILS % (AUTO) 0.1 % (0.0-2.0); EOSINOPHILS % (AUTO) 0 % (1.0-6.0); HEMATOCRIT 37.3 % (36-46); HEMOGLOBIN 12.1 g/dL (12.0-16.0); LYMPHOCYTES # (AUTO) 0.3 K/uL (1.0-4.8); LYMPHOCYTES % (AUTO) 1.8 % (22.0-44.0); MEAN CORPUSCULAR HEMOGLOBIN 30.5 pg (26.0-34.0); MEAN CORPUSCULAR HGB CONC 32.3 G/dL (31.0-37.0); MEAN CORPUSCULAR VOLUME 94 fL (80-100); MONOCYTES # (AUTO) 1.1 K/uL (0.1-1.0); MONOCYTES % (AUTO) 6.9 % (2.0-9.0); RED BLOOD CELL COUNT(AUTO) 3.96 MIL/uL (4.00-5.20); RED CELL DISTRIBUTION WIDTH 21.7 % (11.5-14.5)
[2020-03-09 07:22] LABS: ALANINE AMINOTRANSFERASE 75 U/L (12-78); ALBUMIN 1.8 g/dL (3.4-5.0); ALKALINE PHOSPHATASE 96 U/L (46-116); ANION GAP 8 mmol/L (8-16); ASPARTATE AMINOTRANSFERASE 75 U/L (15-37); BILIRUBIN,TOTAL 2.5 mg/dL (0.1-1.0); C-REACTIVE PROTEIN QUANT 0.57 mg/dL (0.00-0.30); CALCIUM, TOTAL 8.4 mg/dL (8.8-10.5); CARBON DIOXIDE 28 mmol/L (22-29); CHLORIDE 110 mmol/L (98-107); CREATININE 0.52 mg/dL (0.60-1.30); FERRITIN 108 ng/mL (8-252); GLOMERULAR FILTR. RATE CALC > 60 mL/min (>60); GLUCOSE,RANDOM 221 mg/dL (70-110); POTASSIUM 4.9 mmol/L (3.5-5.1); SODIUM SERUM 146 mmol/L (136-145); TOTAL PROTEIN, SERUM 5.4 g/dL (6.4-8.2); UREA NITROGEN, BLOOD 24 mg/dL (7-18)
[2020-03-09] MEDS: INSULIN REGULAR, HUMAN 100 UNITS/ML SQ PRN ×4 (07:23→22:47)
[2020-03-09 07:27] LABS: NEUTROPHILS % (AUTO) 91.2 % (40.0-70.0)
[2020-03-09 08:19] VITALS: BP 105/56
[2020-03-09 08:33] LABS: PLATELET COUNT (AUTO) 38 K/uL (150-450)
[2020-03-09] MEDS: DOCUSATE SODIUM 100 MG/10 ML LIQUID UDCUP GT SCH (08:58)
[2020-03-09] MEDS: DEXAMETHASONE SOD PHOS 10 MG/ML VIAL IVP SCH (08:58)
[2020-03-09] MEDS: MULTIVITAMINS WITH MINERALS, THERAPEUTIC TABLET PO SCH (08:58)
[2020-03-09] MEDS: FAMOTIDINE 10 MG/ML 2 ML VIAL IVP SCH ×2 (08:58→22:16)
[2020-03-09] MEDS: METOPROLOL TARTRATE 25 MG TABLET PO SCH ×2 (08:58→22:16)
[2020-03-09] MEDS: INSULIN GLARGINE,HUM.REC.ANLOG 100 UNITS/ML SQ SCH ×2 (09:00→22:46)
[2020-03-09 11:47] VITALS: BP 134/66
[2020-03-09 13:15] LABS: ANION GAP 6 mmol/L (8-16); CALCIUM, TOTAL 8.6 mg/dL (8.8-10.5); CARBON DIOXIDE 26 mmol/L (22-29); CHLORIDE 107 mmol/L (98-107); CREATININE 0.65 mg/dL (0.60-1.30); GLOMERULAR FILTR. RATE CALC > 60 mL/min (>60); GLUCOSE,RANDOM 236 mg/dL (70-110); POTASSIUM 5.7 mmol/L (3.5-5.1); SODIUM SERUM 139 mmol/L (136-145); UREA NITROGEN, BLOOD 29 mg/dL (7-18)
[2020-03-09 15:58] VITALS: BP 130/61
[2020-03-09 19:54] VITALS: BP 135/72
[2020-03-09 20:09] LABS: GLUCOMETER DEV NAME(LOC) 5N.3; GLUCOSE,POINT OF CARE 209 MG/DL (70-110)
[2020-03-09 20:09] LABS: GLUCOMETER DEV NAME(LOC) 5S.1; GLUCOSE,POINT OF CARE 210 MG/DL (70-110)
[2020-03-09 20:10] LABS: GLUCOMETER DEV NAME(LOC) 5S.1; GLUCOSE,POINT OF CARE 263 MG/DL (70-110)
[2020-03-09 20:36] LABS: ANION GAP 8 mmol/L (8-16); CALCIUM, TOTAL 8.7 mg/dL (8.8-10.5); CARBON DIOXIDE 26 mmol/L (22-29); CHLORIDE 105 mmol/L (98-107); CREATININE 0.75 mg/dL (0.60-1.30); GLOMERULAR FILTR. RATE CALC > 60 mL/min (>60); GLUCOSE,RANDOM 313 mg/dL (70-110); POTASSIUM 5.2 mmol/L (3.5-5.1); SODIUM SERUM 139 mmol/L (136-145); UREA NITROGEN, BLOOD 27 mg/dL (7-18)
[2020-03-09] MEDS ORDERED: SODIUM CHLORIDE 0.9% 100 ML ONE (22:56)
[2020-03-09] MEDS: ACETAMINOPHEN 650 MG/20.3 ML SOLUTION UDCUP NG PRN (23:12)
[2020-03-09 23:14] VITALS: BP 127/54
[2020-03-10] MEDS: HydrALAZINE HCL 25 MG TABLET PO SCH ×3 (00:30→16:00)
[2020-03-10 01:22] LABS: GLUCOMETER DEV NAME(LOC) 5N.3; GLUCOSE,POINT OF CARE 301 MG/DL (70-110)
[2020-03-10 03:11] VITALS: BP 121/64
[2020-03-10] MEDS: MAGNESIUM HYDROXIDE SUSPENSION 30 ML UDCUP PO PRN (06:08)
[2020-03-10] MEDS: PIPERACILLIN/TAZO 3.375 GM/D5W 50 ML IV SCH ×2 (06:08→11:53)
[2020-03-10] MEDS: INSULIN REGULAR, HUMAN 100 UNITS/ML SQ PRN ×2 (06:24→11:53)
[2020-03-10 07:36] VITALS: BP 127/63
[2020-03-10 08:08] LABS: GLUCOMETER DEV NAME(LOC) 5S.1; GLUCOSE,POINT OF CARE 248 MG/DL (70-110)
[2020-03-10 08:48] LABS: ALANINE AMINOTRANSFERASE 90 U/L (12-78); ALBUMIN 1.8 g/dL (3.4-5.0); ALKALINE PHOSPHATASE 125 U/L (46-116); ANION GAP 6 mmol/L (8-16); ASPARTATE AMINOTRANSFERASE 78 U/L (15-37); BILIRUBIN,TOTAL 3.2 mg/dL (0.1-1.0); C-REACTIVE PROTEIN QUANT 1.03 mg/dL (0.00-0.30); CALCIUM, TOTAL 8.4 mg/dL (8.8-10.5); CARBON DIOXIDE 27 mmol/L (22-29); CHLORIDE 106 mmol/L (98-107); CREATININE 0.62 mg/dL (0.60-1.30); FERRITIN 106 ng/mL (8-252); GLOMERULAR FILTR. RATE CALC > 60 mL/min (>60); GLUCOSE,RANDOM 231 mg/dL (70-110); POTASSIUM 4.7 mmol/L (3.5-5.1); SODIUM SERUM 139 mmol/L (136-145); TOTAL PROTEIN, SERUM 5.7 g/dL (6.4-8.2); UREA NITROGEN, BLOOD 25 mg/dL (7-18)
[2020-03-10] MEDS: METOPROLOL TARTRATE 25 MG TABLET PO SCH ×2 (08:48→20:44)
[2020-03-10] MEDS: INSULIN GLARGINE,HUM.REC.ANLOG 100 UNITS/ML SQ SCH ×2 (08:49→20:50)
[2020-03-10] MEDS: FAMOTIDINE 10 MG/ML 2 ML VIAL IVP SCH ×2 (08:50→20:44)
[2020-03-10] MEDS: DEXAMETHASONE SOD PHOS 10 MG/ML VIAL IVP SCH (08:50)
[2020-03-10] MEDS: MULTIVITAMINS WITH MINERALS, THERAPEUTIC TABLET PO SCH (08:50)
[2020-03-10] MEDS: DOCUSATE SODIUM 100 MG/10 ML LIQUID UDCUP GT SCH (09:00)
[2020-03-10 11:30] VITALS: BP 110/53
[2020-03-10 15:51] VITALS: BP 103/57
[2020-03-10] MEDS: CefTRIAXone SODIUM 2 GM in DEXTROSE 5%-WATER 50 ML IV SCH (17:44)
[2020-03-10 20:51] VITALS: BP 118/62
[2020-03-10 23:28] VITALS: BP 129/68
[2020-03-11] MEDS: HydrALAZINE HCL 25 MG TABLET PO SCH ×3 (00:18→17:45)
[2020-03-11 05:42] VITALS: BP 111/65
[2020-03-11] MEDS ORDERED: SODIUM CHLORIDE 0.9% 100 ML ONE (05:43)
[2020-03-11 06:24] LABS: BASOPHILS % (AUTO) 0.3 % (0.0-2.0); EOSINOPHILS % (AUTO) 0 % (1.0-6.0); HEMATOCRIT 39.7 % (36-46); HEMOGLOBIN 12.5 g/dL (12.0-16.0); LYMPHOCYTES # (AUTO) 0.3 K/uL (1.0-4.8); LYMPHOCYTES % (AUTO) 1.2 % (22.0-44.0); MEAN CORPUSCULAR HEMOGLOBIN 29.4 pg (26.0-34.0); MEAN CORPUSCULAR HGB CONC 31.4 G/dL (31.0-37.0); MEAN CORPUSCULAR VOLUME 94 fL (80-100); MONOCYTES # (AUTO) 1.2 K/uL (0.1-1.0); MONOCYTES % (AUTO) 5.4 % (2.0-9.0); NEUTROPHILS # (AUTO) 20.5 K/uL (1.8-7.7); PLATELET COUNT (AUTO) 32 K/uL (150-450); RED BLOOD CELL COUNT(AUTO) 4.24 MIL/uL (4.00-5.20); RED CELL DISTRIBUTION WIDTH 21.8 % (11.5-14.5)
[2020-03-11] MEDS: INSULIN REGULAR, HUMAN 100 UNITS/ML SQ PRN ×3 (06:31→21:02)
[2020-03-11 06:56] LABS: ALANINE AMINOTRANSFERASE 85 U/L (12-78); ALBUMIN 1.6 g/dL (3.4-5.0); ALKALINE PHOSPHATASE 100 U/L (46-116); ANION GAP 5 mmol/L (8-16); ASPARTATE AMINOTRANSFERASE 72 U/L (15-37); BILIRUBIN,TOTAL 3.2 mg/dL (0.1-1.0); CALCIUM, TOTAL 8.5 mg/dL (8.8-10.5); CARBON DIOXIDE 28 mmol/L (22-29); CHLORIDE 109 mmol/L (98-107); GLOMERULAR FILTR. RATE CALC > 60 mL/min (>60); GLUCOSE,RANDOM 166 mg/dL (70-110); POTASSIUM 4.9 mmol/L (3.5-5.1); SODIUM SERUM 142 mmol/L (136-145); TOTAL PROTEIN, SERUM 5.4 g/dL (6.4-8.2); UREA NITROGEN, BLOOD 27 mg/dL (7-18)
[2020-03-11 07:03] LABS: NEUTROPHILS % (AUTO) 93.1 % (40.0-70.0)
[2020-03-11 07:25] VITALS: BP 98/54
[2020-03-11 07:38] LABS: GLUCOMETER DEV NAME(LOC) 5S.1; GLUCOSE,POINT OF CARE 166 MG/DL (70-110)
[2020-03-11 07:38] LABS: GLUCOMETER DEV NAME(LOC) 5S.1; GLUCOSE,POINT OF CARE 153 MG/DL (70-110)
[2020-03-11 07:38] LABS: GLUCOMETER DEV NAME(LOC) 5S.1; GLUCOSE,POINT OF CARE 213 MG/DL (70-110)
[2020-03-11 07:38] LABS: GLUCOMETER DEV NAME(LOC) 5S.1; GLUCOSE,POINT OF CARE 147 MG/DL (70-110)
[2020-03-11 08:18] LABS: C-REACTIVE PROTEIN QUANT 9.74 mg/dL (0.00-0.30); FERRITIN 116 ng/mL (8-252)
[2020-03-11] MEDS: DOCUSATE SODIUM 100 MG/10 ML LIQUID UDCUP GT SCH (08:50)
[2020-03-11] MEDS: METOPROLOL TARTRATE 25 MG TABLET PO SCH ×2 (08:51→20:58)
[2020-03-11] MEDS: DEXAMETHASONE SOD PHOS 10 MG/ML VIAL IVP SCH (08:59)
[2020-03-11] MEDS: FAMOTIDINE 10 MG/ML 2 ML VIAL IVP SCH ×2 (08:59→20:58)
[2020-03-11] MEDS: MULTIVITAMINS WITH MINERALS, THERAPEUTIC TABLET PO SCH (08:59)
[2020-03-11] MEDS: INSULIN GLARGINE,HUM.REC.ANLOG 100 UNITS/ML SQ SCH ×2 (09:15→21:01)
[2020-03-11] MEDS ORDERED: IOVERSOL 350 MG/ML 100 ML VIAL ONE (10:42)
[2020-03-11 11:48] VITALS: BP 113/44
[2020-03-11 12:50] LABS: GLUCOMETER DEV NAME(LOC) 5S.1; GLUCOSE,POINT OF CARE 190 MG/DL (70-110)
[2020-03-11 14:52] VITALS: BP 132/56
[2020-03-11 17:18] LABS: GLUCOMETER DEV NAME(LOC) 5N.3; GLUCOSE,POINT OF CARE 144 MG/DL (70-110)
[2020-03-11] MEDS: CefTRIAXone SODIUM 2 GM in DEXTROSE 5%-WATER 50 ML IV SCH (17:46)
[2020-03-11 20:05] VITALS: BP 116/61
[2020-03-12] VITALS (7 sets, daily range): BP systolic 110–137; BP diastolic 52–69
[2020-03-12 01:46] LABS: GLUCOMETER DEV NAME(LOC) 5S.1; GLUCOSE,POINT OF CARE 219 MG/DL (70-110)
[2020-03-12] MEDS ORDERED: VANCOMYCIN HCL 1 GM/D5% WATER 200 ML IV ONE ×2 (03:00→08:00)
[2020-03-12 05:15] LABS: GLUCOMETER DEV NAME(LOC) 5N.3; GLUCOSE,POINT OF CARE 244 MG/DL (70-110)
[2020-03-12 06:01] LABS: BASOPHILS % (AUTO) 0.2 % (0.0-2.0); EOSINOPHILS % (AUTO) 0 % (1.0-6.0); HEMATOCRIT 36.1 % (36-46); HEMOGLOBIN 11.7 g/dL (12.0-16.0); LYMPHOCYTES # (AUTO) 0.3 K/uL (1.0-4.8); LYMPHOCYTES % (AUTO) 1.6 % (22.0-44.0); MEAN CORPUSCULAR HEMOGLOBIN 30.4 pg (26.0-34.0); MEAN CORPUSCULAR HGB CONC 32.5 G/dL (31.0-37.0); MEAN CORPUSCULAR VOLUME 94 fL (80-100); MONOCYTES # (AUTO) 1.1 K/uL (0.1-1.0); MONOCYTES % (AUTO) 5.9 % (2.0-9.0); NEUTROPHILS # (AUTO) 17.2 K/uL (1.8-7.7); PLATELET COUNT (AUTO) 33 K/uL (150-450); RED BLOOD CELL COUNT(AUTO) 3.86 MIL/uL (4.00-5.20); RED CELL DISTRIBUTION WIDTH 22.4 % (11.5-14.5)
[2020-03-12] MEDS: INSULIN REGULAR, HUMAN 100 UNITS/ML SQ PRN ×4 (06:31→20:15)
[2020-03-12 06:46] LABS: NEUTROPHILS % (AUTO) 92.3 % (40.0-70.0)
[2020-03-12 07:25] LABS: ALANINE AMINOTRANSFERASE 89 U/L (12-78); ALBUMIN 1.6 g/dL (3.4-5.0); ALKALINE PHOSPHATASE 104 U/L (46-116); ANION GAP 5 mmol/L (8-16); ASPARTATE AMINOTRANSFERASE 65 U/L (15-37); BILIRUBIN,TOTAL 2.6 mg/dL (0.1-1.0); CALCIUM, TOTAL 8.7 mg/dL (8.8-10.5); CARBON DIOXIDE 27 mmol/L (22-29); CHLORIDE 109 mmol/L (98-107); CREATININE 0.42 mg/dL (0.60-1.30); GLOMERULAR FILTR. RATE CALC > 60 mL/min (>60); GLUCOSE,RANDOM 214 mg/dL (70-110); POTASSIUM 4.8 mmol/L (3.5-5.1); SODIUM SERUM 141 mmol/L (136-145); TOTAL PROTEIN, SERUM 5.3 g/dL (6.4-8.2); UREA NITROGEN, BLOOD 28 mg/dL (7-18)
[2020-03-12 08:07] LABS: C-REACTIVE PROTEIN QUANT 12.05 mg/dL (0.00-0.30); FERRITIN 135 ng/mL (8-252)
[2020-03-12 09:12] LABS: ERYTHROCYTE SEDIMENTATION RATE 16 MM/HR (0-20)
[2020-03-12] MEDS: DEXAMETHASONE SOD PHOS 10 MG/ML VIAL IVP SCH (09:36)
[2020-03-12] MEDS: METOPROLOL TARTRATE 25 MG TABLET PO SCH ×2 (09:37→20:11)
[2020-03-12] MEDS: MULTIVITAMINS WITH MINERALS, THERAPEUTIC TABLET PO SCH (09:37)
[2020-03-12] MEDS: FAMOTIDINE 10 MG/ML 2 ML VIAL IVP SCH ×2 (09:37→20:11)
[2020-03-12] MEDS: HydrALAZINE HCL 25 MG TABLET PO SCH ×3 (09:37→16:00)
[2020-03-12] MEDS: INSULIN GLARGINE,HUM.REC.ANLOG 100 UNITS/ML SQ SCH ×2 (09:40→20:13)
[2020-03-12] MEDS: ACETAMINOPHEN 650 MG/20.3 ML SOLUTION UDCUP NG PRN (12:08)
[2020-03-12] MEDS: DOCUSATE SODIUM 100 MG/10 ML LIQUID UDCUP GT SCH (12:12)
[2020-03-12] MEDS: LORazepam 2 MG/ML VIAL IVP PRN (13:24)
[2020-03-12] MEDS ORDERED: VANCOMYCIN HCL 1.25 GM in DEXTROSE 5%-WATER 250 ML IV SCH (16:00)
[2020-03-12 17:06] LABS: GLUCOMETER DEV NAME(LOC) 5S.1; GLUCOSE,POINT OF CARE 191 MG/DL (70-110)
[2020-03-12] MEDS: CefTRIAXone SODIUM 2 GM in DEXTROSE 5%-WATER 50 ML IV SCH (17:19)
[2020-03-12] MEDS: VANCOMYCIN HCL 1.5 GM in DEXTROSE 5%-WATER 250 ML IV SCH (20:17)
[2020-03-12] MEDS ORDERED: SODIUM CHLORIDE 0.9% 500 ML IV ONE (20:27)
[2020-03-12 21:28] LABS: APPEARANCE,URINE CLEAR (CLEAR); BILIRUBIN,URINE PRELIM. POSITIVE (NEGATIVE); GLUCOSE, URINE (UA) NEGATIVE (NEGATIVE); KETONES,URINE NEGATIVE (NEGATIVE); LEUKOCYTE ESTERASE ,URINE TRACE (NEGATIVE); NITRATE,URINE NEGATIVE (NEGATIVE); OCCULT BLOOD,URINE NEGATIVE (NEGATIVE); PROTEIN,URINE NEGATIVE (NEGATIVE)
[2020-03-12 21:35] LABS: BACTERIA,URINE Rare /HPF (None Seen); RBC,URINE 0-2 /HPF (0-2); SQUAMOUS EPITHELIAL CELL,UR Few /LPF (None Seen); YEAST,URINE Few /HPF (None Seen)
[2020-03-13] MEDS: HydrALAZINE HCL 25 MG TABLET PO SCH ×4 (00:09→23:49)
[2020-03-13 05:45] VITALS: BP 135/61
[2020-03-13] MEDS: INSULIN REGULAR, HUMAN 100 UNITS/ML SQ PRN ×4 (06:31→21:04)
[2020-03-13 07:20] VITALS: BP 117/56
[2020-03-13 07:26] LABS: ALANINE AMINOTRANSFERASE 97 U/L (12-78); ALBUMIN 1.5 g/dL (3.4-5.0); ALKALINE PHOSPHATASE 106 U/L (46-116); ANION GAP 1 mmol/L (8-16); ASPARTATE AMINOTRANSFERASE 77 U/L (15-37); BILIRUBIN,TOTAL 2.8 mg/dL (0.1-1.0); C-REACTIVE PROTEIN QUANT 8.48 mg/dL (0.00-0.30); CALCIUM, TOTAL 8.4 mg/dL (8.8-10.5); CARBON DIOXIDE 28 mmol/L (22-29); CHLORIDE 105 mmol/L (98-107); CREATININE 0.39 mg/dL (0.60-1.30); FERRITIN 161 ng/mL (8-252); GLOMERULAR FILTR. RATE CALC > 60 mL/min (>60); GLUCOSE,RANDOM 196 mg/dL (70-110); SODIUM SERUM 134 mmol/L (136-145); TOTAL PROTEIN, SERUM 5.3 g/dL (6.4-8.2); UREA NITROGEN, BLOOD 27 mg/dL (7-18)
[2020-03-13 08:41] LABS: GLUCOMETER DEV NAME(LOC) 5N.3; GLUCOSE,POINT OF CARE 221 MG/DL (70-110)
[2020-03-13 08:41] LABS: GLUCOMETER DEV NAME(LOC) 5N.3; GLUCOSE,POINT OF CARE 244 MG/DL (70-110)
[2020-03-13 08:41] LABS: GLUCOMETER DEV NAME(LOC) 5N.3; GLUCOSE,POINT OF CARE 194 MG/DL (70-110)
[2020-03-13 08:41] LABS: GLUCOMETER DEV NAME(LOC) 5N.3; GLUCOSE,POINT OF CARE 242 MG/DL (70-110)
[2020-03-13] MEDS: MULTIVITAMINS WITH MINERALS, THERAPEUTIC TABLET PO SCH (08:45)
[2020-03-13] MEDS: DOCUSATE SODIUM 100 MG/10 ML LIQUID UDCUP GT SCH (08:49)
[2020-03-13] MEDS: FAMOTIDINE 10 MG/ML 2 ML VIAL IVP SCH ×2 (08:49→20:56)
[2020-03-13] MEDS: METOPROLOL TARTRATE 25 MG TABLET PO SCH ×2 (08:49→20:56)
[2020-03-13] MEDS: VANCOMYCIN HCL 1.5 GM in DEXTROSE 5%-WATER 250 ML IV SCH ×2 (08:53→20:56)
[2020-03-13] MEDS: INSULIN GLARGINE,HUM.REC.ANLOG 100 UNITS/ML SQ SCH ×2 (08:59→21:03)
[2020-03-13] MEDS: HYDROCODONE/ACETAMINOPHEN 10-325 MG TABLET PO PRN (09:25)
[2020-03-13 10:50] VITALS: BP 110/59
[2020-03-13 11:58] LABS: GLUCOMETER DEV NAME(LOC) 5S.2A; GLUCOSE,POINT OF CARE 256 MG/DL (70-110)
[2020-03-13 15:50] VITALS: BP 112/57
[2020-03-13] MEDS: CefTRIAXone SODIUM 2 GM in DEXTROSE 5%-WATER 50 ML IV SCH (16:52)
[2020-03-13 18:12] LABS: GLUCOMETER DEV NAME(LOC) 5N.1; GLUCOSE,POINT OF CARE 174 MG/DL (70-110)
[2020-03-13 19:59] VITALS: BP 135/67
[2020-03-13 20:34] VITALS: BP 130/71
[2020-03-14 00:05] VITALS: BP 133/62
[2020-03-14 04:19] VITALS: BP 118/59
[2020-03-14 07:02] LABS: BASOPHILS % (AUTO) 0.2 % (0.0-2.0); EOSINOPHILS % (AUTO) 2.4 % (1.0-6.0); HEMATOCRIT 34.1 % (36-46); HEMOGLOBIN 10.9 g/dL (12.0-16.0); LYMPHOCYTES # (AUTO) 0.5 K/uL (1.0-4.8); LYMPHOCYTES % (AUTO) 3.7 % (22.0-44.0); MEAN CORPUSCULAR HEMOGLOBIN 30.2 pg (26.0-34.0); MEAN CORPUSCULAR VOLUME 94 fL (80-100); MONOCYTES # (AUTO) 0.8 K/uL (0.1-1.0); NEUTROPHILS # (AUTO) 10.5 K/uL (1.8-7.7); PLATELET COUNT (AUTO) 26 K/uL (150-450); RED BLOOD CELL COUNT(AUTO) 3.62 MIL/uL (4.00-5.20); RED CELL DISTRIBUTION WIDTH 21.8 % (11.5-14.5)
[2020-03-14 07:15] VITALS: BP 122/66
[2020-03-14 07:31] LABS: ALANINE AMINOTRANSFERASE 98 U/L (12-78); ALBUMIN 1.3 g/dL (3.4-5.0); ALKALINE PHOSPHATASE 98 U/L (46-116); ANION GAP 4 mmol/L (8-16); ASPARTATE AMINOTRANSFERASE 73 U/L (15-37); BILIRUBIN,TOTAL 2.1 mg/dL (0.1-1.0); CALCIUM, TOTAL 8.4 mg/dL (8.8-10.5); CARBON DIOXIDE 27 mmol/L (22-29); CHLORIDE 107 mmol/L (98-107); GLOMERULAR FILTR. RATE CALC > 60 mL/min (>60); GLUCOSE,RANDOM 122 mg/dL (70-110); POTASSIUM 4.8 mmol/L (3.5-5.1); SODIUM SERUM 138 mmol/L (136-145); TOTAL PROTEIN, SERUM 4.6 g/dL (6.4-8.2); UREA NITROGEN, BLOOD 25 mg/dL (7-18)
[2020-03-14 07:38] LABS: NEUTROPHILS % (AUTO) 86.7 % (40.0-70.0)
[2020-03-14 07:51] LABS: VANCOMYCIN,RANDOM 18.7 mcg/mL (25.0-50.0)
[2020-03-14] MEDS: DOCUSATE SODIUM 100 MG/10 ML LIQUID UDCUP GT SCH (09:00)
[2020-03-14] MEDS: FAMOTIDINE 10 MG/ML 2 ML VIAL IVP SCH (09:04)
[2020-03-14] MEDS: HydrALAZINE HCL 25 MG TABLET PO SCH ×2 (09:04→16:00)
[2020-03-14] MEDS: VANCOMYCIN HCL 1.5 GM in DEXTROSE 5%-WATER 250 ML IV SCH (09:05)
[2020-03-14] MEDS: METOPROLOL TARTRATE 25 MG TABLET PO SCH (09:05)
[2020-03-14] MEDS: MULTIVITAMINS WITH MINERALS, THERAPEUTIC TABLET PO SCH (09:05)
[2020-03-14] MEDS: INSULIN GLARGINE,HUM.REC.ANLOG 100 UNITS/ML SQ SCH (09:11)
[2020-03-14] MEDS: INSULIN REGULAR, HUMAN 100 UNITS/ML SQ PRN (11:00)
[2020-03-14 11:18] VITALS: BP 120/54
[2020-03-14 11:43] LABS: GLUCOMETER DEV NAME(LOC) 5S.1; GLUCOSE,POINT OF CARE 143 MG/DL (70-110)
[2020-03-14 12:09] LABS: C-REACTIVE PROTEIN QUANT 5.45 mg/dL (0.00-0.30)
[2020-03-14] MEDS ORDERED: HYPROMELLOSE 0.5% 15 ML OPHTHALMIC SOLUTION OU PRN (13:30)
[2020-03-14] MEDS ORDERED: CEFX2I IV (14:33)
[2020-03-14] MEDS ORDERED: DOCU-275 PO (14:33)
[2020-03-14] MEDS ORDERED: INSLAN SQ ×2 (14:34)
[2020-03-14] MEDS ORDERED: HYDR10TA31 PO (14:34)
[2020-03-14] MEDS ORDERED: METO25 PO (14:35)
[2020-03-14] MEDS ORDERED: MULT-248 PO (14:35)
[2020-03-14] MEDS ORDERED: VANC125C12 PO (14:36)
[2020-03-14] MEDS ORDERED: VANC125C12 IV (14:36)
[2020-03-14] MEDS ORDERED: ACET-66 PO (14:37)
[2020-03-14] MEDS ORDERED: HYDR-4455 PO (14:38)
[2020-03-14] MEDS ORDERED: BISA10SU11 PR (14:38)
[2020-03-14] MEDS ORDERED: MOM30 PO (14:39)
[2020-03-14 14:50] VITALS: BP 116/64
[2020-03-14] MEDS: CefTRIAXone SODIUM 2 GM in DEXTROSE 5%-WATER 50 ML IV SCH (17:23)
[2020-03-14 18:00] LABS: GLUCOMETER DEV NAME(LOC) 5S.1; GLUCOSE,POINT OF CARE 89 MG/DL (70-110)
[2020-03-14 18:06] LABS: GLUCOMETER DEV NAME(LOC) 5N.3; GLUCOSE,POINT OF CARE 160 MG/DL (70-110)
[2020-03-14 18:06] LABS: GLUCOMETER DEV NAME(LOC) 5N.3; GLUCOSE,POINT OF CARE 117 MG/DL (70-110)
[2020-03-14 18:39] VITALS: BP 112/65
[2020-03-14] MEDS: LORazepam 2 MG/ML VIAL IVP PRN (18:46)
== END 2020-03-14 19:50 | DRG 870 ==
LOC: EMS 20:52 → ICU 22:48 → 5N 03-07 13:40
PROVIDERS: ADMIT Internal Medicine; ATTEND Internal Medicine
PROC: 5A1955Z Respiratory Ventilation, Greater than 96 Consecutive Hours (ICD-10-PCS; principal; 2020-02-24)
PROC: 30233L1 Transfusion of Nonautologous Fresh Plasma into Peripheral Vein, Percutaneous Approach (ICD-10-PCS; 2020-02-26)
PROC: 5A09357 Assistance with Respiratory Ventilation, Less than 24 Consecutive Hours, Continuous Positive Airway Pressure (ICD-10-PCS; 2020-03-07)
PROC: 05HY33Z Insertion of Infusion Device into Upper Vein, Percutaneous Approach (ICD-10-PCS; 2020-03-11)
PROC: B54NZZ3 Ultrasonography of Left Upper Extremity Veins, Intravascular (ICD-10-PCS; 2020-03-11)
DX: A41.9 Sepsis, unspecified organism (principal); U07.1 COVID-19; J96.01 Acute respiratory failure with hypoxia; J12.89 Other viral pneumonia; G92 Toxic encephalopathy; R65.21 Severe sepsis with septic shock; E87.0 Hyperosmolality and hypernatremia; E11.65 Type 2 diabetes mellitus with hyperglycemia; D69.6 Thrombocytopenia, unspecified; E03.9 Hypothyroidism, unspecified; E11.51 Type 2 diabetes mellitus with diabetic peripheral angiopathy without gangrene; E66.9 Obesity, unspecified; E78.00 Pure hypercholesterolemia, unspecified; I10 Essential (primary) hypertension; Z68.39 Body mass index [BMI] 39.0-39.9, adult
CPT/HCPCS: 36245; 36569; 36600; 70450; 71260; 72141; 72193; 74160; 76705; 76937; 82728; 82805; 83605; 83615; 83735; 84100; 84145; 84439; 84443; 85379; 85651; 86140; 86850; 86900; 86901; 86927; 87040; 87070; 87081; 87086; 87205; 92507; 92526; 92610; 93005; 93970; 94002; 94003; 97110; 97140; 97162; 97163; 97530; 97535; 99291; G0238; G0378; J0290; J0360; J0456; J0696; J1100; J1450; J1644; J1815; J2060; J2405; J2543; J2704; J3010; J3370; J3490; J7030; J7040; J7050; J7060; J7120; 36415-L1; 36415-TC; 71045-TC; 80061-TC; 80202-TC; 81003-TC; U0003-CS